=== PATIENT | male | born 1975 | race Caucasian/White ===

== ENCOUNTER 2017-04-12 21:25 | Inpatient (IN) | payer BC ==
[~2017-04-12] VITALS: Ht 182.9 cm; Wt 99.8 kg
[2017-04-12] MEDS ORDERED: ONDANSETRON PF 4 MG/2 ML VIAL. IV PRN (22:30)
[2017-04-12] MEDS ORDERED: HYDROcodone/APAP 5/325MG 1 TAB TABLET PO ONE (22:30)
--- NOTE | 2017-04-12 22:41 | PHYS DOC ---
Past Medical History Past Medical History: Anxiety Past Surgical History: No Surgical History Alcohol Use: Occasionally Drug Use: None Adult General Chief Complaint Chief Complaint: SKIN RASH/ABSCESS HPI HPI Patient is a 41 year old male presents to the emergency department stating that he has redness and pain to his left buttocks. Patient states he has been having this for the last week. He states that it's very tender and he is unable to sit on the buttocks side. He denies any drainage or discharge coming from the site. He does state that they did try to naseem it himself with no results. Patient is unsure when his last tetanus immunization occurred. He denies fever chills or nausea vomiting at this point in time Review of Systems Review of Systems Constitutional: Denies fever or chills [] Eyes: Denies change in visual acuity, redness, or eye pain [] HENT: Denies nasal congestion or sore throat [] Respiratory: Denies cough or shortness of breath [] Cardiovascular: No additional information not addressed in HPI [] GI: Denies abdominal pain, nausea, vomiting, bloody stools or diarrhea [] : Denies dysuria or hematuria [] Musculoskeletal: Denies back pain or joint pain [] Integument: Denies rash or skin lesions. Red painful area to the left buttock Neurologic: Denies headache, focal weakness or sensory changes [] Endocrine: Denies polyuria or polydipsia [] Current Medications Current Medications Current Medications Medications (Trade) Dose Ordered Sig/Doc Start Time Stop Time Status Last Admin Dose Admin Acetaminophen/ Hydrocodone Bitart (Lortab 5/325) 2 tab 1X ONCE 04/12/17 22:30 04/12/17 22:31 DC Clindamycin Phosphate 50 ml @ 100 mls/hr ONCE ONCE 04/12/17 22:45 04/12/17 23:14 Diphtheria/ Tetanus/Acell Pertussis (Boostrix) 0.5 ml ONCE ONCE 04/12/17 22:45 04/12/17 22:46 Morphine Sulfate 4 mg PRN Q2HR PRN 04/12/17 22:30 04/13/17 22:29 Ondansetron HCl (Zofran) 4 mg PRN Q8HRS PRN 04/12/17 22:30 04/13/17 22:29 Sodium Chloride 1,000 ml @ 125 mls/hr Q8H 04/12/17 22:30 04/13/17 22:29 Allergies Allergies Allergies Coded Allergies Type Severity Reaction Last Updated Verified No Known Drug Allergies 09/05/16 No Physical Exam Physical Exam Constitutional: Well developed, well nourished, no acute distress, non-toxic appearance. [] HENT: Normocephalic, atraumatic, bilateral external ears normal, oropharynx moist, no oral exudates, nose normal. [] Eyes: PERRLA, EOMI, conjunctiva normal, no discharge. [] Neck: Normal range of motion, no tenderness, supple, no stridor. [] Cardiovascular:Heart rate regular rhythm, no murmur [] Lungs & Thorax: Bilateral breath sounds clear to auscultation [] Skin: Warm, dry, no erythema, no rash. Left buttock with an area that is a football size with redness, warmth, tenderness. No drainage noted to the area. Back: No tenderness Extremities: No tenderness, no cyanosis, no clubbing, ROM intact, no edema. [] Neurologic: Alert and oriented X 3, normal motor function, normal sensory function, no focal deficits noted. [] Psychologic: Affect normal, judgement normal, mood normal. [] Current Patient Data Vital Signs Vital Signs Date Time Temp Pulse Resp B/P (MAP) Pulse Ox O2 Delivery O2 Flow Rate FiO2 04/12/17 21:30 99.4 114 16 145/91 (109) 99 Room Air 99.4 EKG EKG [] Radiology/Procedures Radiology/Procedures [] Course & Med Decision Making Course & Med Decision Making Pertinent Labs and Imaging studies reviewed. (See chart for details) Spoke with patient in regard to admission into the hospital for IV antibiotics. Patient agrees with admission. Spoke with Dr Burnett who recommends sed rate and ultrasound. Orders have been completed. [] Dragon Disclaimer Dragon Disclaimer This electronic medical record was generated, in whole or in part, using a voice recognition dictation system. Departure Departure Impression: Primary Impression: Cellulitis of left buttock Disposition: ADMITTED INPATIENT Admitting Physician: Sherri Kelly Condition: STABLE Referrals: VITALIY MARMOLEJO MD (PCP) Scripts No Active Prescriptions or Reported Meds SURYA WILKS OFFICE EXECUTIVE April 12, 2017 22:41
[2017-04-12 22:44] LABS: BASO # 0.1 x10^3/uL (0.0-0.2); BASO % 1 % (0-3); EOS % 1 % (0-3); HEMATOCRIT 42.4 % (39.0-53.0); HEMOGLOBIN 14.1 g/dL (13.0-17.5); LYMPH # 2.1 x10^3/uL (1.0-4.8); LYMPH % 11 % (24-48); MEAN CORPUSCULAR HEMOGLOBIN 30 pg (25-35); MEAN CORPUSCULAR HGB CONC 33 g/dL (31-37); MEAN CORPUSCULAR VOLUME 90 fL (79-100); MONO % 6 % (0-9); NEUT % 81 % (31-73); PLATELET COUNT 537 x10^3/uL (140-400); RED CELL DISTRIBUTION WIDTH 15.1 % (11.5-14.5); WHITE BLOOD COUNT 19.2 x10^3/uL (4.0-11.0)
[2017-04-12] MEDS ORDERED: DIPHTH,PERTUSS(ACELL),TET TOX 0.5 ML DISP.SYRIN. VAX IM ONE (22:45)
[2017-04-12] MEDS ORDERED: CLINDAMYCIN 600MG PREMIX 50 ML IV ONE (22:45)
[2017-04-12 22:55] LABS: CALCIUM 9.5 mg/dL (8.5-10.1); CREATININE 1.2 mg/dL (0.7-1.3); GFR 67.4; POTASSIUM 4.5 mmol/L (3.5-5.1)
[2017-04-12 23:00] LABS: ALBUMIN 2.8 g/dL (3.4-5.0); ALBUMIN/GLOBULIN RATIO 0.5 (1.0-1.7); TOTAL BILIRUBIN 0.4 mg/dL (0.2-1.0); TOTAL PROTEIN 7.9 g/dL (6.4-8.2)
[2017-04-12 23:06] LABS: % BASOS 1 % (0-3); % EOS 2 % (0-5); PLT ESTIMATE INCREASED (ADEQUATE); TOXIC GRANULATION SLIGHT
[2017-04-12] MEDS: MORPHINE SULFATE 4 MG/ML DISP.SYRIN. IV PRN (23:06)
--- NOTE | 2017-04-12 23:14 | RAD ---
INDICATION: Pain and redness left buttock COMPARISON: None. FINDINGS: Focused ultrasound images were obtained through the left buttock at the region of concern. Within the subcutaneous soft tissues there is a 48 x 47 x 22 mm complex appearing hypoechoic structure identified. There is some edema and skin thickening seen in the region as well IMPRESSION: Complex appearing hypoechoic region is seen within the subcutaneous soft tissues of left buttock. Could be from causes such as phlegmon/early abscess formation although other causes such as hematoma or soft tissue mass can also have this appearance. Follow-up could be obtained to ensure that this resolves. Electronically signed by: Vik Villegas MD (04/12/2017 11:11 PM)
[2017-04-12 23:54] VITALS: BP 133/89
[2017-04-13] VITALS (11 sets, daily range): BP systolic 97–141; BP diastolic 57–78
[2017-04-13] MEDS: IV NORMAL SALINE 1000ML BAG 1,000 ML IV SCH ×3 (00:16→14:30)
[2017-04-13] MEDS: CLINDAMYCIN 600MG PREMIX 50 ML IV SCH ×3 (05:36→21:52)
[2017-04-13 06:36] LABS: BASO % 0 % (0-3); EOS % 2 % (0-3); HEMATOCRIT 42.5 % (39.0-53.0); HEMOGLOBIN 14.2 g/dL (13.0-17.5); LYMPH % 12 % (24-48); MEAN CORPUSCULAR HEMOGLOBIN 30 pg (25-35); MEAN CORPUSCULAR HGB CONC 33 g/dL (31-37); MEAN CORPUSCULAR VOLUME 90 fL (79-100); MONO % 8 % (0-9); NEUT % 77 % (31-73); PLATELET COUNT 468 x10^3/uL (140-400); RED BLOOD COUNT 4.73 x10^6/uL (4.30-5.70); RED CELL DISTRIBUTION WIDTH 14.7 % (11.5-14.5); WHITE BLOOD COUNT 16.8 x10^3/uL (4.0-11.0)
[2017-04-13 06:51] LABS: CALCIUM 8.7 mg/dL (8.5-10.1); CREATININE 1.1 mg/dL (0.7-1.3); GFR 74.5; POTASSIUM 4.3 mmol/L (3.5-5.1)
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
[2017-04-13] MEDS: MORPHINE SULFATE 4 MG/ML DISP.SYRIN. IV PRN (08:36)
[2017-04-13] MEDS ORDERED: BUPIVAC MPF-EPI 0.5%-1:200000 30 ML VIAL. ONE (08:59)
[2017-04-13] MEDS ORDERED: ONDANSETRON PF 4 MG/2 ML VIAL. IV ONE (09:00)
[2017-04-13] MEDS ORDERED: IV RINGERS,LACTATED 1000ML 1,000 ML IV ONE (09:15)
[2017-04-13] MEDS ORDERED: fentaNYL PF VIAL 250 MCG/5 ML VIAL ONE (09:25)
[2017-04-13] MEDS ORDERED: LIDOCAINE 2% PF Vial for OR 5 ML VIAL. ONE (09:26)
[2017-04-13] MEDS ORDERED: PROPOFOL 20 ML IV ONE (09:26)
[2017-04-13] MEDS ORDERED: ONDANSETRON PF 4 MG/2 ML VIAL. ONE (09:58)
[2017-04-13] MEDS ORDERED: DEXAMETHASONE SOD PHOS 20 MG/5 ML VIAL. ONE (09:58)
[2017-04-13] MEDS ORDERED: SODIUM HYPOCHLORITE 0.25% 473 ML BOTTLE. TP ONE (10:00)
[2017-04-13] MEDS ORDERED: fentaNYL PF VIAL 100 MCG/2 ML VIAL ONE (10:24)
[2017-04-13] MEDS ORDERED: IV RINGERS,LACTATED 1000ML 1,000 ML IV SCH (10:32)
[2017-04-13] MEDS ORDERED: SEVOFLURANE 61 TO 120 MINUTES. IH ONE (10:37)
[2017-04-13] MEDS ORDERED: fentaNYL PF VIAL 100 MCG/2 ML VIAL IV PRN (10:45)
[2017-04-13] MEDS ORDERED: LIDOCAINE 1% 1 ML SYRINGE. ID PRN (10:45)
[2017-04-13] MEDS ORDERED: PROCHLORPERAZINE 10 MG/2 ML VIAL. IV PRN (10:45)
[2017-04-13] MEDS ORDERED: MORPHINE SULFATE 2 MG/ML DISP.SYRIN. IV PRN (10:45)
[2017-04-13] MEDS ORDERED: HYDROmorphone 2 MG/ML VIAL IV PRN (10:45)
[2017-04-13] MEDS ORDERED: ONDANSETRON PF 4 MG/2 ML VIAL. IV PRN (10:45)
[2017-04-13] MEDS: fentaNYL PF VIAL 100 MCG/2 ML VIAL IV PRN ×2 (10:53→11:05)
--- NOTE | 2017-04-13 11:33 | PDOC1 ---
History and Physical Date of Admission Date of Admission DATE: 04/13/17 TIME: 11:27 Identification/Chief Complaint Chief Complaint left buttock pain Problems: Source Source: Caregiver, Chart review, Patient History of Present Illness History of Present Illness 41 y.o male with no past medical, non DM, 1 week hx left buttock pain and redness, tried to naseem it/some manipulation, came to ER last night bec of persistence, WBC 19, no documented fevers. MID level provider advised admission, I asked her to do ESR, US overnight to r./o abscess given the description of induration and hardness, and true enough, abscess/drainable collection was identified, ESR elevated at 92. Started on clinda IV. No temp overnight, WBC slightly down to 16 from 19. Now having I and D by Past Medical History Cardiovascular: No pertinent hx GI: No pertinent hx Heme/Onc: No pertinent hx Hepatobiliary: No pertinent hx Psych: Anxiety Musculoskeletal: No pain Rheumatologic: No pertinent hx Infectious disease: No pertinent hx Renal/: No pertinent hx Endocrine: No pertinent hx Past Surgical History Past Surgical History: No pertinent history Family History Family History: No Significant (reviewed none) Social History Smoke: No ALCOHOL: none Drugs: None Current Medications Current Medications Current Medications Acetaminophen/ Hydrocodone Bitart (Lortab 5/325) 2 tab 1X ONCE PO Last administered on 04/12/17 23:04; Start 04/12/17 at 22:30; Stop 04/12/17 at 22:31 ; Status DC Clindamycin Phosphate 50 ml @ 100 mls/hr Q8HRS IV Last administered on 05:36; Start 04/13/17 at 06:00 Ondansetron HCl (Zofran) 4 mg PRN Q8HRS PRN IV NAUSEA/VOMITING Last administered on 04/12/17 23:06; Start 04/12/17 at 22:30; Stop 04/13/17 at 22:29 Morphine Sulfate 4 mg PRN Q2HR PRN IV PAIN Last administered on 04/13/17 08:36 ; Start 04/12/17 at 22:30; Stop 04/13/17 at 22:29 Sodium Chloride 1,000 ml @ 125 mls/hr Q8H IV Last administered on 04/13/17 05: 47; Start 04/12/17 at 22:30; Stop 04/13/17 at 22:29 Diphtheria/ Tetanus/Acell Pertussis (Boostrix) 0.5 ml ONCE ONCE VAX IM Last administered on 04/12/17 23:05; Start 04/12/17 at 22:45; Stop 04/12/17 at 22:46 ; Status DC Clindamycin Phosphate 50 ml @ 100 mls/hr ONCE ONCE IV Last administered on 23:05; Start 04/12/17 at 22:45; Stop 04/12/17 at 23:14; Status DC Bupivacaine HCl/ Epinephrine Bitart (Sensorcain-Mpf Epi 0.5%-1:[id number]) 30 ml STK -MED ONCE .ROUTE ; Start 04/13/17 at 08:59; Stop 04/13/17 at 09:00; Status DC Ondansetron HCl (Zofran) 4 mg 1X ONCE IV ; Start 04/13/17 at 09:00; Stop at 09:03; Status DC Ringer's Solution 1,000 ml @ 75 mls/hr 1X ONCE IV Last administered on 09:00; Start 04/13/17 at 09:15; Stop 04/13/17 at 22:34 Fentanyl Citrate (Fentanyl 5ml Vial) 250 mcg STK-MED ONCE .ROUTE ; Start at 09:25; Stop 04/13/17 at 09:26; Status DC Propofol 20 ml @ As Directed STK-MED ONCE IV ; Start 04/13/17 at 09:26; Stop 04/13 at 09:27; Status DC Lidocaine HCl (Lidocaine Pf 2% Vial) 5 ml STK-MED ONCE .ROUTE ; Start 04/13/17 at 09:26; Stop 04/13/17 at 09:27; Status DC Ondansetron HCl (Zofran) 4 mg STK-MED ONCE .ROUTE ; Start 04/13/17 at 09:58; Stop 04/13/17 at 09:59; Status DC Dexamethasone Sodium Phosphate (Decadron) 20 mg STK-MED ONCE .ROUTE ; Start 04/13 at 09:58; Stop 04/13/17 at 09:59; Status DC Sodium Hypochlorite (Dakin'S 1/2 Strength) 1 diana 1X ONCE TP Last administered on 04/13/17t 10:08; Start 04/13/17 at 10:00; Stop 04/13/17 at 10:01; Status DC Fentanyl Citrate (Fentanyl 2ml Vial) 100 mcg STK-MED ONCE .ROUTE ; Start at 10:24; Stop 04/13/17 at 10:25; Status DC Ondansetron HCl (Zofran) 4 mg PRN Q6HRS PRN IV NAUSEA/VOMITING; Start 04/13/17 at 10:45; Stop 04/14/17 at 10:44 Fentanyl Citrate (Fentanyl 2ml Vial) 25 mcg PRN Q5MIN PRN IV MILD PAIN; Start 04/13/17 at 10:45; Stop 04/14/17 at 10:44 Fentanyl Citrate (Fentanyl 2ml Vial) 50 mcg PRN Q5MIN PRN IV MODERATE PAIN Last administered on 04/13/17t 11:05; Start 04/13/17 at 10:45; Stop 04/14/17 at 10: 44 Morphine Sulfate 1 mg PRN Q10MIN PRN IV SEVERE PAIN; Start 04/13/17 at 10:45; Stop 04/14/17 at 10:44 Ringer's Solution 1,000 ml @ 0 mls/hr Q0M IV ; Start 04/13/17 at 10:32; Stop 04/13/17 at 22:31 Lidocaine HCl 2 ml PRN 1X PRN ID PRIOR TO IV START; Start 04/13/17 at 10:45; Stop 04/14/17 at 10:44 Hydromorphone HCl (Dilaudid) 0.5 mg PRN Q10MIN PRN IV SEV PAIN, Second choice; Start 04/13/17 at 10:45; Stop 04/14/17 at 10:44 Prochlorperazine Edisylate (Compazine) 5 mg PACU PRN PRN IV NAUSEA, MRX1; Start 04/13/17 at 10:45; Stop 04/14/17 at 10:44 Sevoflurane (Ultane) 60 ml STK-MED ONCE IH ; Start 04/13/17 at 10:37; Stop at 10:38; Status DC Active Scripts Active No Active Prescriptions or Reported Medications Allergies Allergies: Coded Allergies: No Known Drug Allergies (Unverified , 09/05/16) ROS General: No: Chills, Night Sweats, Fatigue, Malaise, Appetite, Other PSYCHOLOGICAL ROS: No: Anxiety, Behavioral Disorder, Concentration difficultie , Decreased libido, Depression, Disorientation, Hallucinations, Hostility, Irritablity, Memory difficulties, Mood Swings, Obsessive thoughts, Physical abuse, Sexual abuse, Sleep disturbances, Suicidal ideation, Other Eyes: No Blurry vision, No Decreased vision, No Double vision, No Dry eyes, No Excessive tearing, No Eye Pain, No Itchy Eyes, No Loss of vision, No Photophobia , No Scotomata, No Uses contacts, No Uses glasses, No Other HEENT: No: Heacaches, Visual Changes, Hearing change, Nasal congestion, Nasal discharge, Oral lesions, Sinus pain, Sore Throat, Epistaxis, Sneezing, Snoring, Tinnitus, Vertigo, Vocal changes, Other ALLERGY AND IMMUNOLOGY: No: Hives, Insect Bite Sensitivity, Itchy/Watery Eyes, Nasal Congestion, Post Nasal Drip, Seasonal Allergies, Other Hematological and Lymphatic: No: Bleeding Problems, Blood Clots, Blood Transfusions, Brusing, Night Sweats, Pallor, Swollen Lymph Nodes, Other ENDOCRINE: No: Breast Changes, Galactorrhea, Hair Pattern Changes, Hot Flashes , Malaise/lethargy, Mood Swings, Palpitations, Polydipsia/polyuria, Skin Changes , Temperature Intolerance, Unexpected Weight Changes, Other Breast: No New/Changing Breast Lumps, No Nipple changes, No Nipple discharge, No Other Respiratory: No: Cough, Hemoptysis, Orthopnea, Pleuritic Pain, Shortness of breath, SOB with excertion, Sputum Changes, Stridor, Tachypnea, Wheezing, Other Cardiovascular: No Chest Pain, No Palpitations, No Orthopnea, No Paroxysmal Noc. Dyspnea, No Edema, No Lt Headedness, No Other Gastrointestinal: No Nausea, No Vomiting, No Abdominal Pain, No Diarrhea, No Constipation, No Melena, No Hematochezia, No Other Genitourinary: No Dysuria, No Frequency, No Incontinence, No Hematuria, No Retention, No Discharge, No Urgency, No Pain, No Flank Pain, No Other, No , No , No , No , No , No , No Musculoskeletal: No Gait Disturbance, No Joint Pain, No Joint Stiffness, No Joint Swelling, No Muscle Pain, No Muscular Weakness, No Pain In:, No Swelling In:, No Other Neurological: No Behavorial Changes, No Bowel/Bladder ControlChng, No Confusion , No Dizziness, No Gait Disturbance, No Headaches, No Impaired Coord/balance, No Memory Loss, No Numbness/Tingling, No Seizures, No Speech Problems, No Tremors, No Visual Changes, No Weakness, No Other Skin: No Dry Skin, No Eczema, No Hair Changes, No Lumps, No Mole Changes, No Mottling, No Nail Changes, No Pruritus, No Rash, No Skin Lesion Changes, No Other, No Acne Physical Exam General: Alert, Oriented X3, Cooperative, No acute distress HEENT: PERRLA Lungs: Clear to auscultation, Normal air movement Heart: S1S2, RRR, no thrills, no rubs, no gallops, no murmurs Cardiovascular: S1, S2 Breasts: Normal, Rt breast nml w/o mass, Lt breast nml w/o mass, Nipples normal Abdomen: Normal bowel sounds, Soft, No tenderness, No hepatosplenomegaly, No masses Male Genitals Exam: other (left buttock redness, swelling induration palpable, marked on the area of fluid collection, tender to touch) Rectal Exam: not examined Extremities: No clubbing, No cyanosis, No edema, Normal pulses, No tenderness/ swelling Skin: No rashes, No breakdown, No significant lesion, Other (see above) Neuro: Normal gait, Normal speech, Strength at 5/5 X4 ext, Normal tone, Sensation intact, Cranial nerves 3-12 NL, Reflexes 2+ Psych/Mental Status: Mental status NL, Mood NL Vitals Vitals Vital Signs Date Time Temp Pulse Resp B/P (MAP) Pulse Ox O2 Delivery O2 Flow Rate FiO2 04/13/17 11:15 84 18 140/80 94 Nasal Cannula 2 04/13/17 10:30 99.0 99.0 Labs Labs Laboratory Tests Test 04/12/17 22:22 04/12/17 22:32 04/13/17 06:05 Erythrocyte Sedimentation Rate 92 (0-15) White Blood Count 19.2 x10^3/uL (4.0-11.0) 16.8 x10^3/uL (4.0-11.0) Red Blood Count 4.70 x10^6/uL (4.30-5.70) 4.73 x10^6/uL (4.30-5.70) Hemoglobin 14.1 g/dL (13.0-17.5) 14.2 g/dL (13.0-17.5) Hematocrit 42.4 % (39.0-53.0) 42.5 % (39.0-53.0) Mean Corpuscular Volume 90 fL (79-100) 90 fL (79-100) Mean Corpuscular Hemoglobin 30 pg (25-35) 30 pg (25-35) Mean Corpuscular Hemoglobin Concent 33 g/dL (31-37) 33 g/dL (31-37) Red Cell Distribution Width 15.1 % (11.5-14.5) 14.7 % (11.5-14.5) Platelet Count 537 x10^3/uL (140-400) 468 x10^3/uL (140-400) Neutrophils (%) (Auto) 81 % (31-73) 77 % (31-73) Lymphocytes (%) (Auto) 11 % (24-48) 12 % (24-48) Monocytes (%) (Auto) 6 % (0-9) 8 % (0-9) Eosinophils (%) (Auto) 1 % (0-3) 2 % (0-3) Basophils (%) (Auto) 1 % (0-3) 0 % (0-3) Neutrophils # (Auto) 15.5 x10^3uL (1.8-7.7) 13.0 x10^3uL (1.8-7.7) Lymphocytes # (Auto) 2.1 x10^3/uL (1.0-4.8) 2.0 x10^3/uL (1.0-4.8) Monocytes # (Auto) 1.2 x10^3/uL (0.0-1.1) 1.4 x10^3/uL (0.0-1.1) Eosinophils # (Auto) 0.3 x10^3/uL (0.0-0.7) 0.3 x10^3/uL (0.0-0.7) Basophils # (Auto) 0.1 x10^3/uL (0.0-0.2) 0.0 x10^3/uL (0.0-0.2) Segmented Neutrophils % 76 % (35-66) Band Neutrophils % 4 % (0-9) Lymphocytes % 13 % (24-48) Monocytes % 4 % (0-10) Eosinophils % 2 % (0-5) Basophils % 1 % (0-3) Toxic Granulation Slight Platelet Estimate Increased (ADEQUATE) Sodium Level 137 mmol/L (136-145) 140 mmol/L (136-145) Potassium Level 4.5 mmol/L (3.5-5.1) 4.3 mmol/L (3.5-5.1) Chloride Level 99 mmol/L (98-107) 104 mmol/L (98-107) Carbon Dioxide Level 33 mmol/L (21-32) 31 mmol/L (21-32) Anion Gap 5 (6-14) 5 (6-14) Blood Urea Nitrogen 15 mg/dL (8-26) 15 mg/dL (8-26) Creatinine 1.2 mg/dL (0.7-1.3) 1.1 mg/dL (0.7-1.3) Estimated GFR (Cockcroft-Gault) 67.4 74.5 BUN/Creatinine Ratio 13 (6-20) Glucose Level 94 mg/dL (70-99) 92 mg/dL (70-99) Calcium Level 9.5 mg/dL (8.5-10.1) 8.7 mg/dL (8.5-10.1) Total Bilirubin 0.4 mg/dL (0.2-1.0) Aspartate Amino Transf (AST/SGOT) 49 U/L (15-37) Alanine Aminotransferase (ALT/SGPT) 79 U/L (16-63) Alkaline Phosphatase 73 U/L (46-116) Total Protein 7.9 g/dL (6.4-8.2) Albumin 2.8 g/dL (3.4-5.0) Albumin/Globulin Ratio 0.5 (1.0-1.7) Laboratory Tests Test 04/12/17 22:22 04/12/17 22:32 04/13/17 06:05 Erythrocyte Sedimentation Rate 92 (0-15) White Blood Count 19.2 x10^3/uL (4.0-11.0) 16.8 x10^3/uL (4.0-11.0) Red Blood Count 4.70 x10^6/uL (4.30-5.70) 4.73 x10^6/uL (4.30-5.70) Hemoglobin 14.1 g/dL (13.0-17.5) 14.2 g/dL (13.0-17.5) Hematocrit 42.4 % (39.0-53.0) 42.5 % (39.0-53.0) Mean Corpuscular Volume 90 fL (79-100) 90 fL (79-100) Mean Corpuscular Hemoglobin 30 pg (25-35) 30 pg (25-35) Mean Corpuscular Hemoglobin Concent 33 g/dL (31-37) 33 g/dL (31-37) Red Cell Distribution Width 15.1 % (11.5-14.5) 14.7 % (11.5-14.5) Platelet Count 537 x10^3/uL (140-400) 468 x10^3/uL (140-400) Neutrophils (%) (Auto) 81 % (31-73) 77 % (31-73) Lymphocytes (%) (Auto) 11 % (24-48) 12 % (24-48) Monocytes (%) (Auto) 6 % (0-9) 8 % (0-9) Eosinophils (%) (Auto) 1 % (0-3) 2 % (0-3) Basophils (%) (Auto) 1 % (0-3) 0 % (0-3) Neutrophils # (Auto) 15.5 x10^3uL (1.8-7.7) 13.0 x10^3uL (1.8-7.7) Lymphocytes # (Auto) 2.1 x10^3/uL (1.0-4.8) 2.0 x10^3/uL (1.0-4.8) Monocytes # (Auto) 1.2 x10^3/uL (0.0-1.1) 1.4 x10^3/uL (0.0-1.1) Eosinophils # (Auto) 0.3 x10^3/uL (0.0-0.7) 0.3 x10^3/uL (0.0-0.7) Basophils # (Auto) 0.1 x10^3/uL (0.0-0.2) 0.0 x10^3/uL (0.0-0.2) Segmented Neutrophils % 76 % (35-66) Band Neutrophils % 4 % (0-9) Lymphocytes % 13 % (24-48) Monocytes % 4 % (0-10) Eosinophils % 2 % (0-5) Basophils % 1 % (0-3) Toxic Granulation Slight Platelet Estimate Increased (ADEQUATE) Sodium Level 137 mmol/L (136-145) 140 mmol/L (136-145) Potassium Level 4.5 mmol/L (3.5-5.1) 4.3 mmol/L (3.5-5.1) Chloride Level 99 mmol/L (98-107) 104 mmol/L (98-107) Carbon Dioxide Level 33 mmol/L (21-32) 31 mmol/L (21-32) Anion Gap 5 (6-14) 5 (6-14) Blood Urea Nitrogen 15 mg/dL (8-26) 15 mg/dL (8-26) Creatinine 1.2 mg/dL (0.7-1.3) 1.1 mg/dL (0.7-1.3) Estimated GFR (Cockcroft-Gault) 67.4 74.5 BUN/Creatinine Ratio 13 (6-20) Glucose Level 94 mg/dL (70-99) 92 mg/dL (70-99) Calcium Level 9.5 mg/dL (8.5-10.1) 8.7 mg/dL (8.5-10.1) Total Bilirubin 0.4 mg/dL (0.2-1.0) Aspartate Amino Transf (AST/SGOT) 49 U/L (15-37) Alanine Aminotransferase (ALT/SGPT) 79 U/L (16-63) Alkaline Phosphatase 73 U/L (46-116) Total Protein 7.9 g/dL (6.4-8.2) Albumin 2.8 g/dL (3.4-5.0) Albumin/Globulin Ratio 0.5 (1.0-1.7) VTE Prophylaxis Ordered VTE Prophylaxis Devices: Yes VTE Pharmacological Prophylaxi: Yes Assessment/Plan Assessment/Plan 1. Left buttock cellulitis./abscess 2. SIRS POA, infectious, no oragn dysfunction 3. Leukocytosis, recative thrombocytosis sec to above infection Plan; Admit 2 MN IV CLinda I and D by GS Send specimen to lab CBC again antionette (monitor WBC and platelets) WOund care Quintin RN and LEONIE DE LA PAZ MD Apr 13, 2017 11:33
[2017-04-13] MEDS ORDERED: oxyCODONE/APAP 5/325 1 TAB TABLET PO PRN (11:45)
[2017-04-13] MEDS ORDERED: IBUPROFEN 600 MG TABLET. PO PRN (11:45)
--- NOTE | 2017-04-13 11:51 | PDOC ---
BRIEF OPERATIVE NOTE Pre-Op Diagnosis left gluteal abscess/cellulitis Post-Op Diagnosis extensive left intramuscular gluteal abscess and cellulitis Procedure Performed I and D of complex intramuscular left gluteal abscess Surgeon francia llye Anesthesia Type: General Blood Loss 200 IV Fluid 1100 Findings culture obtained Complications 0 Additional Remarks rené well to rr stable. NO LYLE MD Apr 13, 2017 11:51
[2017-04-13] MEDS: HYDROcodone/APAP 5/325MG 1 TAB TABLET PO PRN ×3 (12:59→23:08)
--- NOTE | 2017-04-13 15:40 | OP ---
DATE OF SURGERY: 04/13/2017 PREOPERATIVE DIAGNOSIS: Left gluteal abscess. POSTOPERATIVE DIAGNOSIS: Extensive complex left intramuscular gluteal abscess. SURGEON: No Lyle M.D. ANESTHESIA: General. ESTIMATED BLOOD LOSS: 200 mL. IV FLUIDS: 1100 mL. PROCEDURES PERFORMED: Incision and drainage of complex intramuscular left gluteal abscess. INDICATIONS: The patient is a 41-year-old male who presents with pain and swelling of his left gluteal region. On exam, he has extensive erythema, tenderness, and fluctuance consistent with abscess. Ultrasound confirmed abscess. FINDINGS: His abscess was quite extensive and had extended into the gluteal musculature. DESCRIPTION OF PROCEDURE: After informed consent was obtained, the patient was taken to the operating room and placed in supine position. After adequate induction of general anesthesia, he was placed on his right side with his left side up. He was prepped and draped in usual sterile fashion. A small incision was made over the fluctuant area and the subcutaneous tissue divided with cautery. What returned was large amount of thick rosario gross pus. This cavity was palpated with gloved finger as well as suction and was quite extensive and extended medially. The incision was then lengthened along the length of the abscess cavity and it was opened with cautery. The patient had extension of the abscess into the gluteal muscles. After adequately exploring the cavity and breaking up all loculations, the wound was made partially hemostatic with cautery. It was then treated with a Pulsavac. The tissues at this point appeared healthy, cultures had been taken. The wound was packed and pressure was held at this point. After removing the packs, hemostasis was nearly complete. There was an area of the muscle fiber that was just diffusely bleeding with unidentifiable or single controllable source. This was treated with FloSeal and laid in the bed of the wound for several minutes, at which point the wound was completely hemostatic. It was entirely irrigated with saline. The wound remained hemostatic. The FloSeal had been evacuated from the wound. The wound was then packed with single long piece of Kerlix slightly moistened in Dakin's. He tolerated the procedure well. There were no apparent complications. During the surgery, the wound had been thoroughly explored and there were no other identifiable undrained pockets or loculations. NO LYLE MD DR: SILVANA/aung JOB#: [id number] / [id number] LEONIE Chavez MD, RICHARD MD
[2017-04-13] MEDS ORDERED: SODIUM HYPOCHLORITE 0.125% 473 ML BOTTLE. TP PRN (20:45)
[2017-04-14 03:00] VITALS: BP 136/86
[2017-04-14 04:45] LABS: BASO # 0.1 x10^3/uL (0.0-0.2); BASO % 0 % (0-3); EOS % 0 % (0-3); HEMATOCRIT 38.9 % (39.0-53.0); LYMPH # 1.5 x10^3/uL (1.0-4.8); LYMPH % 9 % (24-48); MEAN CORPUSCULAR HEMOGLOBIN 30 pg (25-35); MEAN CORPUSCULAR HGB CONC 33 g/dL (31-37); MEAN CORPUSCULAR VOLUME 91 fL (79-100); MONO % 5 % (0-9); NEUT % 86 % (31-73); PLATELET COUNT 515 x10^3/uL (140-400); RED BLOOD COUNT 4.29 x10^6/uL (4.30-5.70); RED CELL DISTRIBUTION WIDTH 15.3 % (11.5-14.5); WHITE BLOOD COUNT 16.4 x10^3/uL (4.0-11.0)
[2017-04-14] MEDS: CLINDAMYCIN 600MG PREMIX 50 ML IV SCH ×3 (05:36→21:57)
[2017-04-14] MEDS: HYDROcodone/APAP 5/325MG 1 TAB TABLET PO PRN (05:38)
[2017-04-14 07:00] VITALS: BP 142/86
--- NOTE | 2017-04-14 09:16 | PDOC ---
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 04/14/17 0916: SURGICAL PROGRESS NOTE Subjective pain at wound d/w nursing significant bleeding to wound he is upset, was hoping to leave today Vital Signs Vital Signs Date Time Temp Pulse Resp B/P (MAP) Pulse Ox O2 Delivery O2 Flow Rate FiO2 04/14/17 07:00 97.5 67 20 142/86 (104) 97 Room Air 97.5 04/13/17 12:45 2.0 I&O Intake and Output 04/14/17 07:00 Intake Total 770 ml Output Total 300 ml Balance 470 ml Intake Oral 770 ml Output Urine Total 300 ml # Voids 3 General: Alert, Oriented X3, Cooperative, No acute distress Skin: Other (left buttock wound, significant bleeding with removal of loose gauze, clots noted in wound bed) Labs Laboratory Tests Test 04/12/17 22:22 04/12/17 22:32 04/13/17 06:05 04/14/17 04:22 Erythrocyte Sedimentation Rate 92 (0-15) White Blood Count 19.2 x10^3/uL (4.0-11.0) 16.8 x10^3/uL (4.0-11.0) 16.4 x10^3/uL (4.0-11.0) Red Blood Count 4.70 x10^6/uL (4.30-5.70) 4.73 x10^6/uL (4.30-5.70) 4.29 x10^6/uL (4.30-5.70) Hemoglobin 14.1 g/dL (13.0-17.5) 14.2 g/dL (13.0-17.5) 13.0 g/dL (13.0-17.5) Hematocrit 42.4 % (39.0-53.0) 42.5 % (39.0-53.0) 38.9 % (39.0-53.0) Mean Corpuscular Volume 90 fL (79-100) 90 fL (79-100) 91 fL (79-100) Mean Corpuscular Hemoglobin 30 pg (25-35) 30 pg (25-35) 30 pg (25-35) Mean Corpuscular Hemoglobin Concent 33 g/dL (31-37) 33 g/dL (31-37) 33 g/dL (31-37) Red Cell Distribution Width 15.1 % (11.5-14.5) 14.7 % (11.5-14.5) 15.3 % (11.5-14.5) Platelet Count 537 x10^3/uL (140-400) 468 x10^3/uL (140-400) 515 x10^3/uL (140-400) Neutrophils (%) (Auto) 81 % (31-73) 77 % (31-73) 86 % (31-73) Lymphocytes (%) (Auto) 11 % (24-48) 12 % (24-48) 9 % (24-48) Monocytes (%) (Auto) 6 % (0-9) 8 % (0-9) 5 % (0-9) Eosinophils (%) (Auto) 1 % (0-3) 2 % (0-3) 0 % (0-3) Basophils (%) (Auto) 1 % (0-3) 0 % (0-3) 0 % (0-3) Neutrophils # (Auto) 15.5 x10^3uL (1.8-7.7) 13.0 x10^3uL (1.8-7.7) 14.0 x10^3uL (1.8-7.7) Lymphocytes # (Auto) 2.1 x10^3/uL (1.0-4.8) 2.0 x10^3/uL (1.0-4.8) 1.5 x10^3/uL (1.0-4.8) Monocytes # (Auto) 1.2 x10^3/uL (0.0-1.1) 1.4 x10^3/uL (0.0-1.1) 0.7 x10^3/uL (0.0-1.1) Eosinophils # (Auto) 0.3 x10^3/uL (0.0-0.7) 0.3 x10^3/uL (0.0-0.7) 0.0 x10^3/uL (0.0-0.7) Basophils # (Auto) 0.1 x10^3/uL (0.0-0.2) 0.0 x10^3/uL (0.0-0.2) 0.1 x10^3/uL (0.0-0.2) Segmented Neutrophils % 76 % (35-66) Band Neutrophils % 4 % (0-9) Lymphocytes % 13 % (24-48) Monocytes % 4 % (0-10) Eosinophils % 2 % (0-5) Basophils % 1 % (0-3) Toxic Granulation Slight Platelet Estimate Increased (ADEQUATE) Sodium Level 137 mmol/L (136-145) 140 mmol/L (136-145) Potassium Level 4.5 mmol/L (3.5-5.1) 4.3 mmol/L (3.5-5.1) Chloride Level 99 mmol/L (98-107) 104 mmol/L (98-107) Carbon Dioxide Level 33 mmol/L (21-32) 31 mmol/L (21-32) Anion Gap 5 (6-14) 5 (6-14) Blood Urea Nitrogen 15 mg/dL (8-26) 15 mg/dL (8-26) Creatinine 1.2 mg/dL (0.7-1.3) 1.1 mg/dL (0.7-1.3) Estimated GFR (Cockcroft-Gault) 67.4 74.5 BUN/Creatinine Ratio 13 (6-20) Glucose Level 94 mg/dL (70-99) 92 mg/dL (70-99) Calcium Level 9.5 mg/dL (8.5-10.1) 8.7 mg/dL (8.5-10.1) Total Bilirubin 0.4 mg/dL (0.2-1.0) Aspartate Amino Transf (AST/SGOT) 49 U/L (15-37) Alanine Aminotransferase (ALT/SGPT) 79 U/L (16-63) Alkaline Phosphatase 73 U/L (46-116) Total Protein 7.9 g/dL (6.4-8.2) Albumin 2.8 g/dL (3.4-5.0) Albumin/Globulin Ratio 0.5 (1.0-1.7) Laboratory Tests Test 04/14/17 04:22 White Blood Count 16.4 x10^3/uL (4.0-11.0) Red Blood Count 4.29 x10^6/uL (4.30-5.70) Hemoglobin 13.0 g/dL (13.0-17.5) Hematocrit 38.9 % (39.0-53.0) Mean Corpuscular Volume 91 fL (79-100) Mean Corpuscular Hemoglobin 30 pg (25-35) Mean Corpuscular Hemoglobin Concent 33 g/dL (31-37) Red Cell Distribution Width 15.3 % (11.5-14.5) Platelet Count 515 x10^3/uL (140-400) Neutrophils (%) (Auto) 86 % (31-73) Lymphocytes (%) (Auto) 9 % (24-48) Monocytes (%) (Auto) 5 % (0-9) Eosinophils (%) (Auto) 0 % (0-3) Basophils (%) (Auto) 0 % (0-3) Neutrophils # (Auto) 14.0 x10^3uL (1.8-7.7) Lymphocytes # (Auto) 1.5 x10^3/uL (1.0-4.8) Monocytes # (Auto) 0.7 x10^3/uL (0.0-1.1) Eosinophils # (Auto) 0.0 x10^3/uL (0.0-0.7) Basophils # (Auto) 0.1 x10^3/uL (0.0-0.2) Problem List s/p I&D abscess significant bleeding to wound with removal of loose gauze, fear that if I remove deep, tightly packed gauze bleeding will be more profuse--I discussed with Dr Lyle, will leave packing in place until she rounds, reinforced and a light pressure dressing applied to area Problems: NO LYLE MD 04/14/17 0375: SURGICAL PROGRESS NOTE Assessment/Plan addendum i saw and examined him. his wound started bleeding today and the bleeding has worsened throughout the day. the pain in his buttock is much improved. no fever/chills afeb vss alert, no distress buttock wound: i removed the packing at the beside. sig continuous bleeding. pressure held and then floseal x 2 applied. some of the bleeding stopped which allowed visualization of 3 areas that cont to bleed. one of the 3 was pulsatile. all three are in the subq fat which is not the area that was bleeding yest intraoperatively. area is tender enough to limit the firmness of the pressure that can be applied a/p bleeding, uncontrolled by bedside manuevers from his I and D incision. emergently pt is being returned to the OR for wound exploration and control of bleeding. i expect to be able to apply a wound vac today intraop which will help maintain hemostasis. he is not npo. increased risk of aspiration d/w him but his bleeding is brisk enough that waiting 6 hrs is not reasonable. d/w dr. sanders. d/w pt the risk of additional bleeding. questions answered and he desires to proceed. Problems: KATHY CUI APRN Apr 14, 2017 09:16 NO LYLE MD Apr 14, 2017 14:04
[2017-04-14] MEDS ORDERED: POLYETHYLENE GLYCOL 3350 17 GM PACKET. PO PRN (10:00)
[2017-04-14 11:00] VITALS: BP 131/75
[2017-04-14] MEDS ORDERED: MORPHINE SULFATE 4 MG/ML DISP.SYRIN. IV ONE (12:45)
[2017-04-14] MEDS ORDERED: PROCHLORPERAZINE 10 MG/2 ML VIAL. IV PRN (13:00)
[2017-04-14] MEDS ORDERED: fentaNYL PF VIAL 100 MCG/2 ML VIAL IV PRN ×2 (13:00)
[2017-04-14] MEDS ORDERED: LIDOCAINE 1% 1 ML SYRINGE. ID PRN (13:00)
[2017-04-14] MEDS ORDERED: HYDROmorphone 2 MG/ML VIAL IV PRN (13:00)
[2017-04-14] MEDS ORDERED: IV RINGERS,LACTATED 1000ML 1,000 ML IV SCH (13:00)
[2017-04-14] MEDS ORDERED: MORPHINE SULFATE 2 MG/ML DISP.SYRIN. IV PRN (13:00)
[2017-04-14] MEDS ORDERED: ONDANSETRON PF 4 MG/2 ML VIAL. IV PRN (13:00)
[2017-04-14] MEDS: MORPHINE SULFATE 4 MG/ML DISP.SYRIN. IV PRN (13:11)
[2017-04-14] MEDS ORDERED: LIDOCAINE 2% PF Vial for OR 5 ML VIAL. ONE (13:21)
[2017-04-14] MEDS ORDERED: PROPOFOL 20 ML IV ONE (13:21)
[2017-04-14] MEDS ORDERED: FAMOTIDINE 20 MG/2 ML VIAL ONE (13:21)
[2017-04-14] MEDS ORDERED: ONDANSETRON PF 4 MG/2 ML VIAL. ONE (13:22)
[2017-04-14] MEDS ORDERED: DEXAMETHASONE SOD PHOS 20 MG/5 ML VIAL. ONE (13:22)
[2017-04-14] MEDS ORDERED: SUCCINYLCHOLINE 200 MG/10 ML VIAL. ONE (13:22)
[2017-04-14 13:30] LABS: HEMATOCRIT 38.4 % (39.0-53.0); HEMOGLOBIN 12.9 g/dL (13.0-17.5); RED BLOOD COUNT 4.25 x10^6/uL (4.30-5.70); WHITE BLOOD COUNT 18.5 x10^3/uL (4.0-11.0)
[2017-04-14] MEDS ORDERED: SEVOFLURANE 31 TO 60 MINUTES. IH ONE ×2 (13:31→14:38)
[2017-04-14] MEDS ORDERED: fentaNYL PF VIAL 100 MCG/2 ML VIAL ONE (13:56)
--- NOTE | 2017-04-14 15:10 | PDOC ---
BRIEF OPERATIVE NOTE Pre-Op Diagnosis bleeding from incision wound exploration/control of bleeding with suture ligation and cautery francia maloney ebl 25 ivf 300 rené well to rr stable #[id number] wound vac applied with wound team in the OR. a single black sponge used in the wound. pt to f/u with wound clinic for outpt vac management. NO LYLE MD Apr 14, 2017 15:10
--- NOTE | 2017-04-14 17:41 | PDOC ---
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 Quintin RN and Vitals Vitals Vital Signs Date Time Temp Pulse Resp B/P (MAP) Pulse Ox O2 Delivery O2 Flow Rate FiO2 04/14/17 15:33 97.0 96 20 138/80 99 Nasal Cannula 2 97.0 Physical Exam General: Alert, Oriented X3, Cooperative, No acute distress Heart: Regular rate, Normal S1, Normal S2, No murmurs Abdomen: Normal bowel sounds, Soft, No tenderness, No hepatosplenomegaly, No masses Extremities: No clubbing, No cyanosis, No edema, Normal pulses, No tenderness/ swelling Skin: Other (left buttock wound, significant bleeding with removal of loose gauze, clots noted in wound bed) Labs LABS Laboratory Tests Test 04/14/17 04:22 04/14/17 13:15 White Blood Count 16.4 x10^3/uL (4.0-11.0) 18.5 x10^3/uL (4.0-11.0) Red Blood Count 4.29 x10^6/uL (4.30-5.70) 4.25 x10^6/uL (4.30-5.70) Hemoglobin 13.0 g/dL (13.0-17.5) 12.9 g/dL (13.0-17.5) Hematocrit 38.9 % (39.0-53.0) 38.4 % (39.0-53.0) Mean Corpuscular Volume 91 fL (79-100) 90 fL (79-100) Mean Corpuscular Hemoglobin 30 pg (25-35) 30 pg (25-35) Mean Corpuscular Hemoglobin Concent 33 g/dL (31-37) 34 g/dL (31-37) Red Cell Distribution Width 15.3 % (11.5-14.5) 15.0 % (11.5-14.5) Platelet Count 515 x10^3/uL (140-400) 559 x10^3/uL (140-400) Neutrophils (%) (Auto) 86 % (31-73) Lymphocytes (%) (Auto) 9 % (24-48) Monocytes (%) (Auto) 5 % (0-9) Eosinophils (%) (Auto) 0 % (0-3) Basophils (%) (Auto) 0 % (0-3) Neutrophils # (Auto) 14.0 x10^3uL (1.8-7.7) Lymphocytes # (Auto) 1.5 x10^3/uL (1.0-4.8) Monocytes # (Auto) 0.7 x10^3/uL (0.0-1.1) Eosinophils # (Auto) 0.0 x10^3/uL (0.0-0.7) Basophils # (Auto) 0.1 x10^3/uL (0.0-0.2) Review of Systems Review of Systems co pain co weakness Assessment and Plan Assessmemt and Plan s/p I&D buttock abscess Plan Wound care IV antibx PTOT Home meds Recheck labs Problems: Comment Review of Relevant I have reviewed the following items johanna (where applicable) has been applied. Labs Laboratory Tests Test 04/12/17 22:22 04/12/17 22:32 04/13/17 06:05 04/14/17 04:22 Erythrocyte Sedimentation Rate 92 (0-15) White Blood Count 19.2 x10^3/uL (4.0-11.0) 16.8 x10^3/uL (4.0-11.0) 16.4 x10^3/uL (4.0-11.0) Red Blood Count 4.70 x10^6/uL (4.30-5.70) 4.73 x10^6/uL (4.30-5.70) 4.29 x10^6/uL (4.30-5.70) Hemoglobin 14.1 g/dL (13.0-17.5) 14.2 g/dL (13.0-17.5) 13.0 g/dL (13.0-17.5) Hematocrit 42.4 % (39.0-53.0) 42.5 % (39.0-53.0) 38.9 % (39.0-53.0) Mean Corpuscular Volume 90 fL (79-100) 90 fL (79-100) 91 fL (79-100) Mean Corpuscular Hemoglobin 30 pg (25-35) 30 pg (25-35) 30 pg (25-35) Mean Corpuscular Hemoglobin Concent 33 g/dL (31-37) 33 g/dL (31-37) 33 g/dL (31-37) Red Cell Distribution Width 15.1 % (11.5-14.5) 14.7 % (11.5-14.5) 15.3 % (11.5-14.5) Platelet Count 537 x10^3/uL (140-400) 468 x10^3/uL (140-400) 515 x10^3/uL (140-400) Neutrophils (%) (Auto) 81 % (31-73) 77 % (31-73) 86 % (31-73) Lymphocytes (%) (Auto) 11 % (24-48) 12 % (24-48) 9 % (24-48) Monocytes (%) (Auto) 6 % (0-9) 8 % (0-9) 5 % (0-9) Eosinophils (%) (Auto) 1 % (0-3) 2 % (0-3) 0 % (0-3) Basophils (%) (Auto) 1 % (0-3) 0 % (0-3) 0 % (0-3) Neutrophils # (Auto) 15.5 x10^3uL (1.8-7.7) 13.0 x10^3uL (1.8-7.7) 14.0 x10^3uL (1.8-7.7) Lymphocytes # (Auto) 2.1 x10^3/uL (1.0-4.8) 2.0 x10^3/uL (1.0-4.8) 1.5 x10^3/uL (1.0-4.8) Monocytes # (Auto) 1.2 x10^3/uL (0.0-1.1) 1.4 x10^3/uL (0.0-1.1) 0.7 x10^3/uL (0.0-1.1) Eosinophils # (Auto) 0.3 x10^3/uL (0.0-0.7) 0.3 x10^3/uL (0.0-0.7) 0.0 x10^3/uL (0.0-0.7) Basophils # (Auto) 0.1 x10^3/uL (0.0-0.2) 0.0 x10^3/uL (0.0-0.2) 0.1 x10^3/uL (0.0-0.2) Segmented Neutrophils % 76 % (35-66) Band Neutrophils % 4 % (0-9) Lymphocytes % 13 % (24-48) Monocytes % 4 % (0-10) Eosinophils % 2 % (0-5) Basophils % 1 % (0-3) Toxic Granulation Slight Platelet Estimate Increased (ADEQUATE) Sodium Level 137 mmol/L (136-145) 140 mmol/L (136-145) Potassium Level 4.5 mmol/L (3.5-5.1) 4.3 mmol/L (3.5-5.1) Chloride Level 99 mmol/L (98-107) 104 mmol/L (98-107) Carbon Dioxide Level 33 mmol/L (21-32) 31 mmol/L (21-32) Anion Gap 5 (6-14) 5 (6-14) Blood Urea Nitrogen 15 mg/dL (8-26) 15 mg/dL (8-26) Creatinine 1.2 mg/dL (0.7-1.3) 1.1 mg/dL (0.7-1.3) Estimated GFR (Cockcroft-Gault) 67.4 74.5 BUN/Creatinine Ratio 13 (6-20) Glucose Level 94 mg/dL (70-99) 92 mg/dL (70-99) Calcium Level 9.5 mg/dL (8.5-10.1) 8.7 mg/dL (8.5-10.1) Total Bilirubin 0.4 mg/dL (0.2-1.0) Aspartate Amino Transf (AST/SGOT) 49 U/L (15-37) Alanine Aminotransferase (ALT/SGPT) 79 U/L (16-63) Alkaline Phosphatase 73 U/L (46-116) Total Protein 7.9 g/dL (6.4-8.2) Albumin 2.8 g/dL (3.4-5.0) Albumin/Globulin Ratio 0.5 (1.0-1.7) Test 04/14/17 13:15 White Blood Count 18.5 x10^3/uL (4.0-11.0) Red Blood Count 4.25 x10^6/uL (4.30-5.70) Hemoglobin 12.9 g/dL (13.0-17.5) Hematocrit 38.4 % (39.0-53.0) Mean Corpuscular Volume 90 fL (79-100) Mean Corpuscular Hemoglobin 30 pg (25-35) Mean Corpuscular Hemoglobin Concent 34 g/dL (31-37) Red Cell Distribution Width 15.0 % (11.5-14.5) Platelet Count 559 x10^3/uL (140-400) Laboratory Tests Test 04/14/17 04:22 04/14/17 13:15 White Blood Count 16.4 x10^3/uL (4.0-11.0) 18.5 x10^3/uL (4.0-11.0) Red Blood Count 4.29 x10^6/uL (4.30-5.70) 4.25 x10^6/uL (4.30-5.70) Hemoglobin 13.0 g/dL (13.0-17.5) 12.9 g/dL (13.0-17.5) Hematocrit 38.9 % (39.0-53.0) 38.4 % (39.0-53.0) Mean Corpuscular Volume 91 fL (79-100) 90 fL (79-100) Mean Corpuscular Hemoglobin 30 pg (25-35) 30 pg (25-35) Mean Corpuscular Hemoglobin Concent 33 g/dL (31-37) 34 g/dL (31-37) Red Cell Distribution Width 15.3 % (11.5-14.5) 15.0 % (11.5-14.5) Platelet Count 515 x10^3/uL (140-400) 559 x10^3/uL (140-400) Neutrophils (%) (Auto) 86 % (31-73) Lymphocytes (%) (Auto) 9 % (24-48) Monocytes (%) (Auto) 5 % (0-9) Eosinophils (%) (Auto) 0 % (0-3) Basophils (%) (Auto) 0 % (0-3) Neutrophils # (Auto) 14.0 x10^3uL (1.8-7.7) Lymphocytes # (Auto) 1.5 x10^3/uL (1.0-4.8) Monocytes # (Auto) 0.7 x10^3/uL (0.0-1.1) Eosinophils # (Auto) 0.0 x10^3/uL (0.0-0.7) Basophils # (Auto) 0.1 x10^3/uL (0.0-0.2) Microbiology 04/12/17 Blood Culture - Preliminary, Resulted NO GROWTH AFTER 1 DAY 04/13/17 Anaerobic/Aerobic Culture, Resulted Pending 04/13/17 Anaerobic Culture Result 1 (CAREN), Resulted Pending 04/13/17 Aerobic Culture - Preliminary, Resulted 04/13/17 Aerobic Culture Result 1 (CAREN) - Preliminary, Resulted Medications Current Medications Acetaminophen/ Hydrocodone Bitart (Lortab 5/325) 2 tab 1X ONCE PO Last administered on 04/12/17 23:04; Start 04/12/17 at 22:30; Stop 04/12/17 at 22:31 ; Status DC Clindamycin Phosphate 50 ml @ 100 mls/hr Q8HRS IV Last administered on 14:19; Start 04/13/17 at 06:00 Ondansetron HCl (Zofran) 4 mg PRN Q8HRS PRN IV NAUSEA/VOMITING Last administered on 04/12/17 23:06; Start 04/12/17 at 22:30; Stop 04/13/17 at 22:29 ; Status DC Morphine Sulfate 4 mg PRN Q2HR PRN IV PAIN Last administered on 04/13/17 08:36 ; Start 04/12/17 at 22:30; Stop 04/13/17 at 22:29; Status DC Sodium Chloride 1,000 ml @ 125 mls/hr Q8H IV Last administered on 04/13/17 05: 47; Start 04/12/17 at 22:30; Stop 04/13/17 at 22:29; Status DC Diphtheria/ Tetanus/Acell Pertussis (Boostrix) 0.5 ml ONCE ONCE VAX IM Last administered on 04/12/17 23:05; Start 04/12/17 at 22:45; Stop 04/12/17 at 22:46 ; Status DC Clindamycin Phosphate 50 ml @ 100 mls/hr ONCE ONCE IV Last administered on 23:05; Start 04/12/17 at 22:45; Stop 04/12/17 at 23:14; Status DC Bupivacaine HCl/ Epinephrine Bitart (Sensorcain-Mpf Epi 0.5%-[id number]) 30 ml STK -MED ONCE .ROUTE ; Start 04/13/17 at 08:59; Stop 04/13/17 at 09:00; Status DC Ondansetron HCl (Zofran) 4 mg 1X ONCE IV ; Start 04/13/17 at 09:00; Stop at 09:03; Status DC Ringer's Solution 1,000 ml @ 75 mls/hr 1X ONCE IV Last administered on 09:00; Start 04/13/17 at 09:15; Stop 04/13/17 at 22:34; Status DC Fentanyl Citrate (Fentanyl 5ml Vial) 250 mcg STK-MED ONCE .ROUTE ; Start at 09:25; Stop 04/13/17 at 09:26; Status DC Propofol 20 ml @ As Directed STK-MED ONCE IV ; Start 04/13/17 at 09:26; Stop 04/13 at 09:27; Status DC Lidocaine HCl (Lidocaine Pf 2% Vial) 5 ml STK-MED ONCE .ROUTE ; Start 04/13/17 at 09:26; Stop 04/13/17 at 09:27; Status DC Ondansetron HCl (Zofran) 4 mg STK-MED ONCE .ROUTE ; Start 04/13/17 at 09:58; Stop 04/13/17 at 09:59; Status DC Dexamethasone Sodium Phosphate (Decadron) 20 mg STK-MED ONCE .ROUTE ; Start 04/13 at 09:58; Stop 04/13/17 at 09:59; Status DC Sodium Hypochlorite (Dakin'S 1/2 Strength) 1 diana 1X ONCE TP Last administered on 04/13/17 10:08; Start 04/13/17 at 10:00; Stop 04/13/17 at 10:01; Status DC Fentanyl Citrate (Fentanyl 2ml Vial) 100 mcg STK-MED ONCE .ROUTE ; Start at 10:24; Stop 04/13/17 at 10:25; Status DC Ondansetron HCl (Zofran) 4 mg PRN Q6HRS PRN IV NAUSEA/VOMITING Last administered on 04/14/17 10:18; Start 04/13/17 at 10:45; Stop 04/14/17 at 10:44; Status DC Fentanyl Citrate (Fentanyl 2ml Vial) 25 mcg PRN Q5MIN PRN IV MILD PAIN; Start 04/13/17 at 10:45; Stop 04/14/17 at 10:44; Status DC Fentanyl Citrate (Fentanyl 2ml Vial) 50 mcg PRN Q5MIN PRN IV MODERATE PAIN Last administered on 04/13/17 11:05; Start 04/13/17 at 10:45; Stop 04/14/17 at 10: 44; Status DC Morphine Sulfate 1 mg PRN Q10MIN PRN IV SEVERE PAIN; Start 04/13/17 at 10:45; Stop 04/14/17 at 10:44; Status DC Ringer's Solution 1,000 ml @ 0 mls/hr Q0M IV ; Start 04/13/17 at 10:32; Stop 04/13/17 at 22:31; Status DC Lidocaine HCl 2 ml PRN 1X PRN ID PRIOR TO IV START; Start 04/13/17 at 10:45; Stop 04/14/17 at 10:44; Status DC Hydromorphone HCl (Dilaudid) 0.5 mg PRN Q10MIN PRN IV SEV PAIN, Second choice; Start 04/13/17 at 10:45; Stop 04/14/17 at 10:44; Status DC Prochlorperazine Edisylate (Compazine) 5 mg PACU PRN PRN IV NAUSEA, MRX1; Start 04/13/17 at 10:45; Stop 04/14/17 at 10:44; Status DC Sevoflurane (Ultane) 60 ml STK-MED ONCE IH ; Start 04/13/17 at 10:37; Stop at 10:38; Status DC Acetaminophen/ Hydrocodone Bitart (Lortab 5/325) 1 tab PRN Q4HRS PRN PO PAIN Last administered on 04/14/17 05:38; Start 04/13/17 at 11:45 Ibuprofen (Motrin) 600 mg PRN Q6HRS PRN PO INFLAMMATION Last administered on 12:59; Start 04/13/17 at 11:45; Stop 04/14/17 at 09:13; Status DC Oxycodone/ Acetaminophen (Percocet 5/325) 2 tab PRN Q4HRS PRN PO PAIN SEVERE Last administered on 04/14/17 10:19; Start 04/13/17 at 11:45 Sodium Hypochlorite (Dakin'S 1/4 Strength) 1 diana PRN QID PRN TP WITH DRESSING CHANGES Last administered on 04/14/17 10:19; Start 04/13/17 at 20:45 Lorazepam (Ativan) 1 mg PRN Q6HRS PRN IV ANXIETY / AGITATION Last administered on 04/14/17 10:18; Start 04/14/17 at 10:00 Lorazepam (Ativan) 2 mg PRN Q6HRS PRN IV ANXIETY / AGITATION; Start 04/14/17 at 10:00 Polyethylene Glycol (miraLAX PACKET) 17 gm PRN DAILY PRN PO CONSTIPATION Last administered on 04/14/17 10:19; Start 04/14/17 at 10:00 Morphine Sulfate 4 mg 1X ONCE IV Last administered on 04/14/17 12:30; Start at 12:45; Stop 04/14/17 at 12:46; Status DC Morphine Sulfate 4 mg PRN Q2HR PRN IV PAIN Last administered on 04/14/17 13:11 ; Start 04/14/17 at 12:45 Ondansetron HCl (Zofran) 4 mg PRN Q6HRS PRN IV NAUSEA/VOMITING; Start 04/14/17 at 13:00; Stop 04/14/17 at 21:00 Fentanyl Citrate (Fentanyl 2ml Vial) 25 mcg PRN Q5MIN PRN IV MILD PAIN; Start 04/14/17 at 13:00; Stop 04/14/17 at 21:00 Fentanyl Citrate (Fentanyl 2ml Vial) 50 mcg PRN Q5MIN PRN IV MODERATE PAIN; Start 04/14/17 at 13:00; Stop 04/14/17 at 21:00 Morphine Sulfate 1 mg PRN Q10MIN PRN IV SEVERE PAIN; Start 04/14/17 at 13:00; Stop 04/14/17 at 21:00 Ringer's Solution 1,000 ml @ 30 mls/hr Q24H IV Last administered on 04/14/17t 13:31; Start 04/14/17 at 13:00; Stop 04/14/17 at 21:00 Lidocaine HCl 2 ml PRN 1X PRN ID PRIOR TO IV START; Start 04/14/17 at 13:00; Stop 04/14/17 at 21:00 Hydromorphone HCl (Dilaudid) 0.5 mg PRN Q10MIN PRN IV SEV PAIN, Second choice; Start 04/14/17 at 13:00; Stop 04/14/17 at 21:00 Prochlorperazine Edisylate (Compazine) 5 mg PACU PRN PRN IV NAUSEA, MRX1; Start 04/14/17 at 13:00; Stop 04/14/17 at 21:00 Propofol 20 ml @ As Directed STK-MED ONCE IV ; Start 04/14/17 at 13:21; Stop 04/14 at 13:22; Status DC Lidocaine HCl (Lidocaine Pf 2% Vial) 5 ml STK-MED ONCE .ROUTE ; Start 04/14/17 at 13:21; Stop 04/14/17 at 13:22; Status DC Famotidine (Pepcid) 20 mg STK-MED ONCE .ROUTE ; Start 04/14/17 at 13:21; Stop 04/14/17 at 13:22; Status DC Ondansetron HCl (Zofran) 4 mg STK-MED ONCE .ROUTE ; Start 04/14/17 at 13:22; Stop 04/14/17 at 13:23; Status DC Dexamethasone Sodium Phosphate (Decadron) 20 mg STK-MED ONCE .ROUTE ; Start 04/14 at 13:22; Stop 04/14/17 at 13:23; Status DC Succinylcholine Chloride (Anectine) 200 mg STK-MED ONCE .ROUTE ; Start 04/14/17 at 13:22; Stop 04/14/17 at 13:23; Status DC Sevoflurane (Ultane) 30 ml STK-MED ONCE IH ; Start 04/14/17 at 13:31; Stop at 13:32; Status DC Fentanyl Citrate (Fentanyl 2ml Vial) 100 mcg STK-MED ONCE .ROUTE ; Start at 13:56; Stop 04/14/17 at 13:57; Status DC Sevoflurane (Ultane) 30 ml STK-MED ONCE IH ; Start 04/14/17 at 14:38; Stop at 14:39; Status DC Active Scripts Active No Active Prescriptions or Reported Medications Vitals/I & O Vital Sign - Last 24 Hours 04/13/17 04/13/17 04/13/17 04/13/17 18:22 19:00 20:00 23:00 Temp 97.5 97.9 97.5 97.9 Pulse 75 94 Resp 20 20 B/P (MAP) 141/78 (99) 115/76 (89) Pulse Ox 95 94 O2 Delivery Room Air Room Air Room Air Room Air 04/13/17 04/14/17 04/14/17 04/14/17 23:08 03:00 05:38 06:40 Temp 98.9 98.9 Pulse 66 Resp 16 18 18 16 B/P (MAP) 136/86 (103) Pulse Ox 96 O2 Delivery Room Air Room Air Room Air 04/14/17 04/14/17 04/14/17 04/14/17 07:00 10:19 11:00 11:48 Temp 97.5 97.3 97.5 97.3 Pulse 67 92 Resp 20 20 B/P (MAP) 142/86 (104) 131/75 (93) Pulse Ox 97 93 O2 Delivery Room Air Room Air Room Air Room Air 04/14/17 04/14/17 04/14/17 04/14/17 12:30 13:11 13:25 15:03 Temp 98.2 98.2 Pulse 90 Resp 18 B/P (MAP) 134/94 Pulse Ox 96 O2 Delivery Room Air Room Air Room Air Mask O2 Flow Rate 10 04/14/17 04/14/17 04/14/17 04/14/17 15:03 15:18 15:30 15:33 Temp 97.0 97.0 97.0 97.0 Pulse 79 79 96 Resp 20 20 20 B/P (MAP) 136/72 124/71 138/80 Pulse Ox 100 99 99 O2 Delivery Simple Mask Simple Mask Nasal Cannula Nasal Cannula O2 Flow Rate 10 10 2 2 Intake and Output 04/13/17 04/13/17 04/14/17 15:00 23:00 07:00 Intake Total 520 ml 250 ml Output Total 300 ml Balance 220 ml 250 ml CASTLE,NIAL K III DO Apr 14, 2017 17:41
[2017-04-14 19:42] VITALS: BP 176/99
[2017-04-14 19:56] VITALS: BP 146/92
--- NOTE | 2017-04-14 20:14 | OP ---
DATE OF SURGERY: 04/14/2017 PREOPERATIVE DIAGNOSIS: Bleeding from gluteal wound. POSTOPERATIVE DIAGNOSIS: Bleeding from gluteal wound. PROCEDURE: Gluteal wound exploration and control of bleeding with suture ligation and cautery. SURGEON: No Lyle M.D. ANESTHESIA: General. ESTIMATED BLOOD LOSS: 25 mL. IV FLUIDS: 300 mL. INDICATIONS: The patient is a 41-year-old male who presents with a very large intramuscular, complex left gluteal abscess. He has underwent an incision and drainage yesterday. Today, during dressing change the wound was bleeding profusely and this could not be controlled at the bedside with local measures including holding pressure and application of FloSeal. He was then therefore returned emergently to the operating room for wound exploration and control of bleeding. FINDINGS: He had diffuse bleeding that was controlled with cautery, but there were several areas of pulsatile bleeding within the subcutaneous fat that were controlled with suture ligation. PROCEDURE IN DETAIL: After informed consent was obtained, the patient was taken to the operating room, placed in supine position. After adequate induction of general anesthesia, he was placed on his right side with his left side up. He was prepped and draped in usual sterile fashion. The packing had been removed. He did have pulsatile bleeding from the subcutaneous fat and lesser from the muscle belly. The wound itself was clean and it was irrigated. Other than bleeding, it was clean in terms of infection. The surrounding erythema and induration that was present yesterday has completely resolved. There was no foul odor. There was no necrotic tissue and no purulence identified. The areas of pulsatile bleeding were oversewn with 3-0 Vicryl sutures. The more diffuse dry areas that were just oozing were controlled with cautery. At the completion of the wound exploration and control of bleeding, the wound was hemostatic. There was no significant tunneling and a single piece of black sponge was used to fill the wound and then the wound VAC was applied. The wound team Gabby and her colleague were present in the operating room and completed putting on the wound VAC. He tolerated the procedure well. There were no apparent complications. He is in the process of being transferred in stable condition to the recovery room. NO LYEL MD DR: SILVANA/aung JOB#: [id number] / [id number] VITALIY Cordero MD [facility] [place]
[2017-04-14 23:01] VITALS: BP 146/90
[2017-04-15] MEDS: HYDROcodone/APAP 5/325MG 1 TAB TABLET PO PRN ×2 (02:52→09:11)
[2017-04-15 03:01] VITALS: BP 147/77
[2017-04-15] MEDS: CLINDAMYCIN 600MG PREMIX 50 ML IV SCH (05:56)
[2017-04-15 07:00] VITALS: BP 126/70
[2017-04-15 11:00] VITALS: BP 131/72
--- NOTE | 2017-04-15 11:08 | PDOC ---
Provider Note Provider Note SURG Kvng for [place] POD 1/2 wound vac on, non bloody aspirate adequate pain control had hiccups last noc per significant other continue vac offer Gas-x EUGENIO MARTINO MD Apr 15, 2017 11:08
[2017-04-15] MEDS ORDERED: SIMETHICONE 80 MG TAB.CHEW PO PRN (11:15)
--- NOTE | 2017-04-15 13:30 | PDOC ---
PROGRESS NOTES Chief Complaint Chief Complaint 1. Left buttock cellulitis./abscess s/p I and D and now wound vac 2. SIRS POA, infectious, no oragn dysfunction 3. Leukocytosis, recative thrombocytosis sec to above infection History of Present Illness History of Present Illness Wants to go home BUt waiting on insurance for wound vac etc - monday WBC persistently high 18- not on steroids BUt no fever ANAEROBIC-AEROBIC CULTURE Preliminary Preliminary report ANAEROBIC RES 1 Preliminary Comment No anaerobes recovered in 48 hours. Performed at: [address] [id number] Reel Slitter: Leigh Spencer MD, Phone: [phone] AEROBIC CULT Final Final report AEROBIC RES 1 Final Staphylococcus aureus Heavy growth Based on resistance to penicillin and susceptibility to oxacillin this isolate would be susceptible to: * Penicillinase-stable penicillins; such as: Cloxacillin Dicloxacillin Nafcillin * Beta-lactam/beta-lactamase inhibitor combinations; such as: Amoxicillin-clavulanic acid Ampicillin-sulbactam * Antistaphylococcal cephems; such as: Cefaclor Cefuroxime * Antistaphylococcal carbapenems; such as: Imipenem Meropenem ANTIMICROBIAL SUSCEPTIBILITY Final Comment PLAN: Shift to nafcillin given sensitivities and peristent WBC\ Recheck WBC antionette Will need to wait for Monday for insurance approval wound vac TRial of thorazine for hiccups Vitals Vitals Vital Signs Date Time Temp Pulse Resp B/P (MAP) Pulse Ox O2 Delivery O2 Flow Rate FiO2 04/15/17 11:00 98.3 82 20 131/72 (91) 96 Room Air 98.3 04/14/17 15:33 2 Physical Exam General: Alert, Oriented X3, Cooperative, No acute distress Heart: Regular rate, Normal S1, Normal S2, No murmurs Abdomen: Normal bowel sounds, Soft, No tenderness, No hepatosplenomegaly, No masses Extremities: No clubbing, No cyanosis, No edema, Normal pulses, No tenderness/ swelling Skin: Other (left buttock wound, significant bleeding with removal of loose gauze, clots noted in wound bed; wound vac) Review of Systems Review of Systems no issues denies 14 pt Comment Review of Relevant I have reviewed the following items johanna (where applicable) has been applied. Labs Laboratory Tests Test 04/14/17 04:22 04/14/17 13:15 White Blood Count 16.4 x10^3/uL (4.0-11.0) 18.5 x10^3/uL (4.0-11.0) Red Blood Count 4.29 x10^6/uL (4.30-5.70) 4.25 x10^6/uL (4.30-5.70) Hemoglobin 13.0 g/dL (13.0-17.5) 12.9 g/dL (13.0-17.5) Hematocrit 38.9 % (39.0-53.0) 38.4 % (39.0-53.0) Mean Corpuscular Volume 91 fL (79-100) 90 fL (79-100) Mean Corpuscular Hemoglobin 30 pg (25-35) 30 pg (25-35) Mean Corpuscular Hemoglobin Concent 33 g/dL (31-37) 34 g/dL (31-37) Red Cell Distribution Width 15.3 % (11.5-14.5) 15.0 % (11.5-14.5) Platelet Count 515 x10^3/uL (140-400) 559 x10^3/uL (140-400) Neutrophils (%) (Auto) 86 % (31-73) Lymphocytes (%) (Auto) 9 % (24-48) Monocytes (%) (Auto) 5 % (0-9) Eosinophils (%) (Auto) 0 % (0-3) Basophils (%) (Auto) 0 % (0-3) Neutrophils # (Auto) 14.0 x10^3uL (1.8-7.7) Lymphocytes # (Auto) 1.5 x10^3/uL (1.0-4.8) Monocytes # (Auto) 0.7 x10^3/uL (0.0-1.1) Eosinophils # (Auto) 0.0 x10^3/uL (0.0-0.7) Basophils # (Auto) 0.1 x10^3/uL (0.0-0.2) Microbiology 04/12/17 Blood Culture - Preliminary, Resulted NO GROWTH AFTER 2 DAYS 04/13/17 Anaerobic/Aerobic Culture - Preliminary, Resulted 04/13/17 Anaerobic Culture Result 1 (CAREN) - Preliminary, Resulted 04/13/17 Aerobic Culture - Final, Resulted 04/13/17 Aerobic Culture Result 1 (CAREN) - Final, Resulted 04/13/17 Antimicrobic Susceptibility - Final, Resulted Medications Current Medications Acetaminophen/ Hydrocodone Bitart (Lortab 5/325) 2 tab 1X ONCE PO Last administered on 04/12/17 23:04; Start 04/12/17 at 22:30; Stop 04/12/17 at 22:31 ; Status DC Clindamycin Phosphate 50 ml @ 100 mls/hr Q8HRS IV Last administered on 05:56; Start 04/13/17 at 06:00 Ondansetron HCl (Zofran) 4 mg PRN Q8HRS PRN IV NAUSEA/VOMITING Last administered on 04/12/17 23:06; Start 04/12/17 at 22:30; Stop 04/13/17 at 22:29 ; Status DC Morphine Sulfate 4 mg PRN Q2HR PRN IV PAIN Last administered on 04/13/17 08:36 ; Start 04/12/17 at 22:30; Stop 04/13/17 at 22:29; Status DC Sodium Chloride 1,000 ml @ 125 mls/hr Q8H IV Last administered on 04/13/17 05: 47; Start 04/12/17 at 22:30; Stop 04/13/17 at 22:29; Status DC Diphtheria/ Tetanus/Acell Pertussis (Boostrix) 0.5 ml ONCE ONCE VAX IM Last administered on 04/12/17 23:05; Start 04/12/17 at 22:45; Stop 04/12/17 at 22:46 ; Status DC Clindamycin Phosphate 50 ml @ 100 mls/hr ONCE ONCE IV Last administered on 23:05; Start 04/12/17 at 22:45; Stop 04/12/17 at 23:14; Status DC Bupivacaine HCl/ Epinephrine Bitart (Sensorcain-Mpf Epi 0.5%-1:370913) 30 ml STK -MED ONCE .ROUTE ; Start 04/13/17 at 08:59; Stop 04/13/17 at 09:00; Status DC Ondansetron HCl (Zofran) 4 mg 1X ONCE IV ; Start 04/13/17 at 09:00; Stop at 09:03; Status DC Ringer's Solution 1,000 ml @ 75 mls/hr 1X ONCE IV Last administered on 09:00; Start 04/13/17 at 09:15; Stop 04/13/17 at 22:34; Status DC Fentanyl Citrate (Fentanyl 5ml Vial) 250 mcg STK-MED ONCE .ROUTE ; Start at 09:25; Stop 04/13/17 at 09:26; Status DC Propofol 20 ml @ As Directed STK-MED ONCE IV ; Start 04/13/17 at 09:26; Stop 04/13 at 09:27; Status DC Lidocaine HCl (Lidocaine Pf 2% Vial) 5 ml STK-MED ONCE .ROUTE ; Start 04/13/17 at 09:26; Stop 04/13/17 at 09:27; Status DC Ondansetron HCl (Zofran) 4 mg STK-MED ONCE .ROUTE ; Start 04/13/17 at 09:58; Stop 04/13/17 at 09:59; Status DC Dexamethasone Sodium Phosphate (Decadron) 20 mg STK-MED ONCE .ROUTE ; Start 04/13 at 09:58; Stop 04/13/17 at 09:59; Status DC Sodium Hypochlorite (Dakin'S 1/2 Strength) 1 diana 1X ONCE TP Last administered on 04/13/17 10:08; Start 04/13/17 at 10:00; Stop 04/13/17 at 10:01; Status DC Fentanyl Citrate (Fentanyl 2ml Vial) 100 mcg STK-MED ONCE .ROUTE ; Start at 10:24; Stop 04/13/17 at 10:25; Status DC Ondansetron HCl (Zofran) 4 mg PRN Q6HRS PRN IV NAUSEA/VOMITING Last administered on 04/14/17 10:18; Start 04/13/17 at 10:45; Stop 04/14/17 at 10:44; Status DC Fentanyl Citrate (Fentanyl 2ml Vial) 25 mcg PRN Q5MIN PRN IV MILD PAIN; Start 04/13/17 at 10:45; Stop 04/14/17 at 10:44; Status DC Fentanyl Citrate (Fentanyl 2ml Vial) 50 mcg PRN Q5MIN PRN IV MODERATE PAIN Last administered on 04/13/17 11:05; Start 04/13/17 at 10:45; Stop 04/14/17 at 10: 44; Status DC Morphine Sulfate 1 mg PRN Q10MIN PRN IV SEVERE PAIN; Start 04/13/17 at 10:45; Stop 04/14/17 at 10:44; Status DC Ringer's Solution 1,000 ml @ 0 mls/hr Q0M IV ; Start 04/13/17 at 10:32; Stop 04/13/17 at 22:31; Status DC Lidocaine HCl 2 ml PRN 1X PRN ID PRIOR TO IV START; Start 04/13/17 at 10:45; Stop 04/14/17 at 10:44; Status DC Hydromorphone HCl (Dilaudid) 0.5 mg PRN Q10MIN PRN IV SEV PAIN, Second choice; Start 04/13/17 at 10:45; Stop 04/14/17 at 10:44; Status DC Prochlorperazine Edisylate (Compazine) 5 mg PACU PRN PRN IV NAUSEA, MRX1; Start 04/13/17 at 10:45; Stop 04/14/17 at 10:44; Status DC Sevoflurane (Ultane) 60 ml STK-MED ONCE IH ; Start 04/13/17 at 10:37; Stop at 10:38; Status DC Acetaminophen/ Hydrocodone Bitart (Lortab 5/325) 1 tab PRN Q4HRS PRN PO PAIN Last administered on 04/15/17 09:11; Start 04/13/17 at 11:45 Ibuprofen (Motrin) 600 mg PRN Q6HRS PRN PO INFLAMMATION Last administered on 12:59; Start 04/13/17 at 11:45; Stop 04/14/17 at 09:13; Status DC Oxycodone/ Acetaminophen (Percocet 5/325) 2 tab PRN Q4HRS PRN PO PAIN SEVERE Last administered on 04/14/17 10:19; Start 04/13/17 at 11:45 Sodium Hypochlorite (Dakin'S 1/4 Strength) 1 diana PRN QID PRN TP WITH DRESSING CHANGES Last administered on 04/14/17 10:19; Start 04/13/17 at 20:45 Lorazepam (Ativan) 1 mg PRN Q6HRS PRN IV ANXIETY / AGITATION Last administered on 04/14/17 10:18; Start 04/14/17 at 10:00 Lorazepam (Ativan) 2 mg PRN Q6HRS PRN IV ANXIETY / AGITATION Last administered on 04/15/17 02:55; Start 04/14/17 at 10:00 Polyethylene Glycol (miraLAX PACKET) 17 gm PRN DAILY PRN PO CONSTIPATION Last administered on 04/14/17 10:19; Start 04/14/17 at 10:00 Morphine Sulfate 4 mg 1X ONCE IV Last administered on 04/14/17 12:30; Start at 12:45; Stop 04/14/17 at 12:46; Status DC Morphine Sulfate 4 mg PRN Q2HR PRN IV PAIN Last administered on 04/14/17 13:11 ; Start 04/14/17 at 12:45 Ondansetron HCl (Zofran) 4 mg PRN Q6HRS PRN IV NAUSEA/VOMITING; Start 04/14/17 at 13:00; Stop 04/14/17 at 21:00; Status DC Fentanyl Citrate (Fentanyl 2ml Vial) 25 mcg PRN Q5MIN PRN IV MILD PAIN; Start 04/14/17 at 13:00; Stop 04/14/17 at 21:00; Status DC Fentanyl Citrate (Fentanyl 2ml Vial) 50 mcg PRN Q5MIN PRN IV MODERATE PAIN; Start 04/14/17 at 13:00; Stop 04/14/17 at 21:00; Status DC Morphine Sulfate 1 mg PRN Q10MIN PRN IV SEVERE PAIN; Start 04/14/17 at 13:00; Stop 04/14/17 at 21:00; Status DC Ringer's Solution 1,000 ml @ 30 mls/hr Q24H IV Last administered on 04/14/17 13:31; Start 04/14/17 at 13:00; Stop 04/14/17 at 21:00; Status DC Lidocaine HCl 2 ml PRN 1X PRN ID PRIOR TO IV START; Start 04/14/17 at 13:00; Stop 04/14/17 at 21:00; Status DC Hydromorphone HCl (Dilaudid) 0.5 mg PRN Q10MIN PRN IV SEV PAIN, Second choice; Start 04/14/17 at 13:00; Stop 04/14/17 at 21:00; Status DC Prochlorperazine Edisylate (Compazine) 5 mg PACU PRN PRN IV NAUSEA, MRX1; Start 04/14/17 at 13:00; Stop 04/14/17 at 21:00; Status DC Propofol 20 ml @ As Directed STK-MED ONCE IV ; Start 04/14/17 at 13:21; Stop 04/14 at 13:22; Status DC Lidocaine HCl (Lidocaine Pf 2% Vial) 5 ml STK-MED ONCE .ROUTE ; Start 04/14/17 at 13:21; Stop 04/14/17 at 13:22; Status DC Famotidine (Pepcid) 20 mg STK-MED ONCE .ROUTE ; Start 04/14/17 at 13:21; Stop 04/14/17 at 13:22; Status DC Ondansetron HCl (Zofran) 4 mg STK-MED ONCE .ROUTE ; Start 04/14/17 at 13:22; Stop 04/14/17 at 13:23; Status DC Dexamethasone Sodium Phosphate (Decadron) 20 mg STK-MED ONCE .ROUTE ; Start 04/14 at 13:22; Stop 04/14/17 at 13:23; Status DC Succinylcholine Chloride (Anectine) 200 mg STK-MED ONCE .ROUTE ; Start 04/14/17 at 13:22; Stop 04/14/17 at 13:23; Status DC Sevoflurane (Ultane) 30 ml STK-MED ONCE IH ; Start 04/14/17 at 13:31; Stop at 13:32; Status DC Fentanyl Citrate (Fentanyl 2ml Vial) 100 mcg STK-MED ONCE .ROUTE ; Start at 13:56; Stop 04/14/17 at 13:57; Status DC Sevoflurane (Ultane) 30 ml STK-MED ONCE IH ; Start 04/14/17 at 14:38; Stop at 14:39; Status DC Simethicone (Gas-X) 80 mg PRN AFTMEALHC PRN PO GAS / BLOATING; Start 04/15/17 at 11:15 Active Scripts Active No Active Prescriptions or Reported Medications Vitals/I & O Vital Sign - Last 24 Hours 04/14/17 04/14/17 04/14/17 04/14/17 15:03 15:03 15:18 15:30 Temp 97.0 97.0 Pulse 79 79 Resp 20 20 B/P (MAP) 136/72 124/71 Pulse Ox 100 99 O2 Delivery Mask Simple Mask Simple Mask Nasal Cannula O2 Flow Rate 10 10 10 2 04/14/17 04/14/17 04/14/17 04/14/17 15:33 19:42 19:56 20:00 Temp 97.0 97.5 97.0 97.5 Pulse 96 106 Resp 20 18 B/P (MAP) 138/80 176/99 (124) 146/92 (110) Pulse Ox 99 95 O2 Delivery Nasal Cannula Room Air Room Air O2 Flow Rate 2 04/14/17 04/15/17 04/15/17 04/15/17 23:01 02:52 03:01 04:00 Temp 98.1 98.2 98.1 98.2 Pulse 93 90 Resp 18 16 18 16 B/P (MAP) 146/90 (108) 147/77 (100) Pulse Ox 96 95 O2 Delivery Room Air Room Air Room Air 04/15/17 04/15/17 04/15/17 04/15/17 07:00 07:40 09:11 10:16 Temp 98.3 98.3 Pulse 78 Resp 20 B/P (MAP) 126/70 (88) Pulse Ox 96 O2 Delivery Room Air Room Air Room Air Room Air 04/15/17 11:00 Temp 98.3 98.3 Pulse 82 Resp 20 B/P (MAP) 131/72 (91) Pulse Ox 96 O2 Delivery Room Air Intake and Output 04/14/17 04/14/17 04/15/17 15:00 23:00 07:00 Intake Total 550 ml 241 ml Output Total 25 ml Balance 525 ml 241 ml LEONIE ANNA MD Apr 15, 2017 13:30
[2017-04-15] MEDS ORDERED: chlorproMAZINE 25 MG TABLET PO PRN (14:15)
[2017-04-15] MEDS: NAFCILLIN 2 GM in IV NORMAL SALINE 100ML 100 ML IV SCH ×3 (14:23→23:49)
[2017-04-15 15:00] VITALS: BP 145/74
[2017-04-15 19:35] VITALS: BP 132/78
[2017-04-15 23:32] VITALS: BP 143/80
[2017-04-16] MEDS: NAFCILLIN 2 GM in IV NORMAL SALINE 100ML 100 ML IV SCH ×5 (04:31→20:27)
[2017-04-16 07:00] VITALS: BP 117/82
--- NOTE | 2017-04-16 10:09 | PDOC ---
Provider Note Provider Note THOMAS Martino for Dr Angela sleeping soundly I did not wake him wound vac in place with serosanguineous drainage continue wound [facility] with wound vac EUGENIO MARTINO MD Apr 16, 2017 10:09
[2017-04-16 11:00] VITALS: BP 140/87
--- NOTE | 2017-04-16 11:18 | PDOC ---
PROGRESS NOTES Chief Complaint Chief Complaint 1. Left buttock cellulitis./abscess s/p I and D and now wound vac 2. SIRS POA, infectious, no oragn dysfunction 3. Leukocytosis, recative thrombocytosis sec to above infection History of Present Illness History of Present Illness Wants to go home BUt waiting on insurance for wound vac etc - monday WBC persistently high 18- not on steroids BUt no fever ANAEROBIC-AEROBIC CULTURE Preliminary Preliminary report ANAEROBIC RES 1 Preliminary Comment No anaerobes recovered in 48 hours. Performed at: [address] [id number] Artist'S Manager: Leigh Spencer MD, Phone: [phone] AEROBIC CULT Final Final report AEROBIC RES 1 Final Staphylococcus aureus Heavy growth Based on resistance to penicillin and susceptibility to oxacillin this isolate would be susceptible to: * Penicillinase-stable penicillins; such as: Cloxacillin Dicloxacillin Nafcillin * Beta-lactam/beta-lactamase inhibitor combinations; such as: Amoxicillin-clavulanic acid Ampicillin-sulbactam * Antistaphylococcal cephems; such as: Cefaclor Cefuroxime * Antistaphylococcal carbapenems; such as: Imipenem Meropenem ANTIMICROBIAL SUSCEPTIBILITY Final Comment PLAN: Shift to nafcillin given sensitivities and peristent WBC\ CBC still pending as of this moment Will need to wait for Monday for insurance approval wound vac TRial of thorazine for hiccups Vitals Vitals Vital Signs Date Time Temp Pulse Resp B/P (MAP) Pulse Ox O2 Delivery O2 Flow Rate FiO2 04/16/17 11:00 98.1 78 16 140/87 (104) 97 Room Air 98.1 Physical Exam General: Alert, Oriented X3, Cooperative, No acute distress Heart: Regular rate, Normal S1, Normal S2, No murmurs Abdomen: Normal bowel sounds, Soft, No tenderness, No hepatosplenomegaly, No masses Extremities: No clubbing, No cyanosis, No edema, Normal pulses, No tenderness/ swelling Skin: Other (left buttock wound, significant bleeding with removal of loose gauze, clots noted in wound bed; wound vac) Review of Systems Review of Systems carmelo 14 pt systems reviewed Comment Review of Relevant I have reviewed the following items johanna (where applicable) has been applied. Labs Laboratory Tests Test 04/14/17 13:15 White Blood Count 18.5 x10^3/uL (4.0-11.0) Red Blood Count 4.25 x10^6/uL (4.30-5.70) Hemoglobin 12.9 g/dL (13.0-17.5) Hematocrit 38.4 % (39.0-53.0) Mean Corpuscular Volume 90 fL (79-100) Mean Corpuscular Hemoglobin 30 pg (25-35) Mean Corpuscular Hemoglobin Concent 34 g/dL (31-37) Red Cell Distribution Width 15.0 % (11.5-14.5) Platelet Count 559 x10^3/uL (140-400) Microbiology 04/12/17 Blood Culture - Preliminary, Resulted NO GROWTH AFTER 3 DAYS 04/13/17 Anaerobic/Aerobic Culture - Preliminary, Resulted 04/13/17 Anaerobic Culture Result 1 (CAREN) - Preliminary, Resulted 04/13/17 Aerobic Culture - Final, Resulted 04/13/17 Aerobic Culture Result 1 (CAREN) - Final, Resulted 04/13/17 Antimicrobic Susceptibility - Final, Resulted Medications Current Medications Acetaminophen/ Hydrocodone Bitart (Lortab 5/325) 2 tab 1X ONCE PO Last administered on 04/12/17 23:04; Start 04/12/17 at 22:30; Stop 04/12/17 at 22:31 ; Status DC Clindamycin Phosphate 50 ml @ 100 mls/hr Q8HRS IV Last administered on 05:56; Start 04/13/17 at 06:00; Stop 04/15/17 at 13:31; Status DC Ondansetron HCl (Zofran) 4 mg PRN Q8HRS PRN IV NAUSEA/VOMITING Last administered on 04/12/17 23:06; Start 04/12/17 at 22:30; Stop 04/13/17 at 22:29 ; Status DC Morphine Sulfate 4 mg PRN Q2HR PRN IV PAIN Last administered on 04/13/17 08:36 ; Start 04/12/17 at 22:30; Stop 04/13/17 at 22:29; Status DC Sodium Chloride 1,000 ml @ 125 mls/hr Q8H IV Last administered on 04/13/17 05: 47; Start 04/12/17 at 22:30; Stop 04/13/17 at 22:29; Status DC Diphtheria/ Tetanus/Acell Pertussis (Boostrix) 0.5 ml ONCE ONCE VAX IM Last administered on 04/12/17 23:05; Start 04/12/17 at 22:45; Stop 04/12/17 at 22:46 ; Status DC Clindamycin Phosphate 50 ml @ 100 mls/hr ONCE ONCE IV Last administered on 23:05; Start 04/12/17 at 22:45; Stop 04/12/17 at 23:14; Status DC Bupivacaine HCl/ Epinephrine Bitart (Sensorcain-Mpf Epi 0.5%-1:672547) 30 ml STK -MED ONCE .ROUTE ; Start 04/13/17 at 08:59; Stop 04/13/17 at 09:00; Status DC Ondansetron HCl (Zofran) 4 mg 1X ONCE IV ; Start 04/13/17 at 09:00; Stop at 09:03; Status DC Ringer's Solution 1,000 ml @ 75 mls/hr 1X ONCE IV Last administered on 09:00; Start 04/13/17 at 09:15; Stop 04/13/17 at 22:34; Status DC Fentanyl Citrate (Fentanyl 5ml Vial) 250 mcg STK-MED ONCE .ROUTE ; Start at 09:25; Stop 04/13/17 at 09:26; Status DC Propofol 20 ml @ As Directed STK-MED ONCE IV ; Start 04/13/17 at 09:26; Stop 04/13 at 09:27; Status DC Lidocaine HCl (Lidocaine Pf 2% Vial) 5 ml STK-MED ONCE .ROUTE ; Start 04/13/17 at 09:26; Stop 04/13/17 at 09:27; Status DC Ondansetron HCl (Zofran) 4 mg STK-MED ONCE .ROUTE ; Start 04/13/17 at 09:58; Stop 04/13/17 at 09:59; Status DC Dexamethasone Sodium Phosphate (Decadron) 20 mg STK-MED ONCE .ROUTE ; Start 04/13 at 09:58; Stop 04/13/17 at 09:59; Status DC Sodium Hypochlorite (Dakin'S 1/2 Strength) 1 diana 1X ONCE TP Last administered on 04/13/17 10:08; Start 04/13/17 at 10:00; Stop 04/13/17 at 10:01; Status DC Fentanyl Citrate (Fentanyl 2ml Vial) 100 mcg STK-MED ONCE .ROUTE ; Start at 10:24; Stop 04/13/17 at 10:25; Status DC Ondansetron HCl (Zofran) 4 mg PRN Q6HRS PRN IV NAUSEA/VOMITING Last administered on 04/14/17 10:18; Start 04/13/17 at 10:45; Stop 04/14/17 at 10:44; Status DC Fentanyl Citrate (Fentanyl 2ml Vial) 25 mcg PRN Q5MIN PRN IV MILD PAIN; Start 04/13/17 at 10:45; Stop 04/14/17 at 10:44; Status DC Fentanyl Citrate (Fentanyl 2ml Vial) 50 mcg PRN Q5MIN PRN IV MODERATE PAIN Last administered on 04/13/17 11:05; Start 04/13/17 at 10:45; Stop 04/14/17 at 10: 44; Status DC Morphine Sulfate 1 mg PRN Q10MIN PRN IV SEVERE PAIN; Start 04/13/17 at 10:45; Stop 04/14/17 at 10:44; Status DC Ringer's Solution 1,000 ml @ 0 mls/hr Q0M IV ; Start 04/13/17 at 10:32; Stop 04/13/17 at 22:31; Status DC Lidocaine HCl 2 ml PRN 1X PRN ID PRIOR TO IV START; Start 04/13/17 at 10:45; Stop 04/14/17 at 10:44; Status DC Hydromorphone HCl (Dilaudid) 0.5 mg PRN Q10MIN PRN IV SEV PAIN, Second choice; Start 04/13/17 at 10:45; Stop 04/14/17 at 10:44; Status DC Prochlorperazine Edisylate (Compazine) 5 mg PACU PRN PRN IV NAUSEA, MRX1; Start 04/13/17 at 10:45; Stop 04/14/17 at 10:44; Status DC Sevoflurane (Ultane) 60 ml STK-MED ONCE IH ; Start 04/13/17 at 10:37; Stop at 10:38; Status DC Acetaminophen/ Hydrocodone Bitart (Lortab 5/325) 1 tab PRN Q4HRS PRN PO PAIN Last administered on 04/15/17 09:11; Start 04/13/17 at 11:45 Ibuprofen (Motrin) 600 mg PRN Q6HRS PRN PO INFLAMMATION Last administered on 12:59; Start 04/13/17 at 11:45; Stop 04/14/17 at 09:13; Status DC Oxycodone/ Acetaminophen (Percocet 5/325) 2 tab PRN Q4HRS PRN PO PAIN SEVERE Last administered on 04/14/17 10:19; Start 04/13/17 at 11:45 Sodium Hypochlorite (Dakin'S 1/4 Strength) 1 diana PRN QID PRN TP WITH DRESSING CHANGES Last administered on 04/14/17 10:19; Start 04/13/17 at 20:45 Lorazepam (Ativan) 1 mg PRN Q6HRS PRN IV ANXIETY / AGITATION Last administered on 04/14/17 10:18; Start 04/14/17 at 10:00 Lorazepam (Ativan) 2 mg PRN Q6HRS PRN IV ANXIETY / AGITATION Last administered on 04/15/17 20:12; Start 04/14/17 at 10:00 Polyethylene Glycol (miraLAX PACKET) 17 gm PRN DAILY PRN PO CONSTIPATION Last administered on 04/14/17 10:19; Start 04/14/17 at 10:00 Morphine Sulfate 4 mg 1X ONCE IV Last administered on 04/14/17 12:30; Start at 12:45; Stop 04/14/17 at 12:46; Status DC Morphine Sulfate 4 mg PRN Q2HR PRN IV PAIN Last administered on 04/14/17 13:11 ; Start 04/14/17 at 12:45 Ondansetron HCl (Zofran) 4 mg PRN Q6HRS PRN IV NAUSEA/VOMITING; Start 04/14/17 at 13:00; Stop 04/14/17 at 21:00; Status DC Fentanyl Citrate (Fentanyl 2ml Vial) 25 mcg PRN Q5MIN PRN IV MILD PAIN; Start 04/14/17 at 13:00; Stop 04/14/17 at 21:00; Status DC Fentanyl Citrate (Fentanyl 2ml Vial) 50 mcg PRN Q5MIN PRN IV MODERATE PAIN; Start 04/14/17 at 13:00; Stop 04/14/17 at 21:00; Status DC Morphine Sulfate 1 mg PRN Q10MIN PRN IV SEVERE PAIN; Start 04/14/17 at 13:00; Stop 04/14/17 at 21:00; Status DC Ringer's Solution 1,000 ml @ 30 mls/hr Q24H IV Last administered on 04/14/17t 13:31; Start 04/14/17 at 13:00; Stop 04/14/17 at 21:00; Status DC Lidocaine HCl 2 ml PRN 1X PRN ID PRIOR TO IV START; Start 04/14/17 at 13:00; Stop 04/14/17 at 21:00; Status DC Hydromorphone HCl (Dilaudid) 0.5 mg PRN Q10MIN PRN IV SEV PAIN, Second choice; Start 04/14/17 at 13:00; Stop 04/14/17 at 21:00; Status DC Prochlorperazine Edisylate (Compazine) 5 mg PACU PRN PRN IV NAUSEA, MRX1; Start 04/14/17 at 13:00; Stop 04/14/17 at 21:00; Status DC Propofol 20 ml @ As Directed STK-MED ONCE IV ; Start 04/14/17 at 13:21; Stop 04/14 at 13:22; Status DC Lidocaine HCl (Lidocaine Pf 2% Vial) 5 ml STK-MED ONCE .ROUTE ; Start 04/14/17 at 13:21; Stop 04/14/17 at 13:22; Status DC Famotidine (Pepcid) 20 mg STK-MED ONCE .ROUTE ; Start 04/14/17 at 13:21; Stop 04/14/17 at 13:22; Status DC Ondansetron HCl (Zofran) 4 mg STK-MED ONCE .ROUTE ; Start 04/14/17 at 13:22; Stop 04/14/17 at 13:23; Status DC Dexamethasone Sodium Phosphate (Decadron) 20 mg STK-MED ONCE .ROUTE ; Start 04/14 at 13:22; Stop 04/14/17 at 13:23; Status DC Succinylcholine Chloride (Anectine) 200 mg STK-MED ONCE .ROUTE ; Start 04/14/17 at 13:22; Stop 04/14/17 at 13:23; Status DC Sevoflurane (Ultane) 30 ml STK-MED ONCE IH ; Start 04/14/17 at 13:31; Stop at 13:32; Status DC Fentanyl Citrate (Fentanyl 2ml Vial) 100 mcg STK-MED ONCE .ROUTE ; Start at 13:56; Stop 04/14/17 at 13:57; Status DC Sevoflurane (Ultane) 30 ml STK-MED ONCE IH ; Start 04/14/17 at 14:38; Stop at 14:39; Status DC Simethicone (Gas-X) 80 mg PRN AFTMEALHC PRN PO GAS / BLOATING Last administered on 04/15/17 14:27; Start 04/15/17 at 11:15 Nafcillin Sodium 2 gm/Sodium Chloride 100 ml @ 200 mls/hr Q4HRS IV Last administered on 04/16/17 08:26; Start 04/15/17 at 14:00 Chlorpromazine HCl (Thorazine) 25 mg PRN Q6HRS PRN PO HICCUPS; Start 04/15/17 at 14:15 Active Scripts Active No Active Prescriptions or Reported Medications Vitals/I & O Vital Sign - Last 24 Hours 04/15/17 04/15/17 04/15/17 04/16/17 15:00 19:35 23:32 07:00 Temp 98.3 98.2 97.7 98.0 98.3 98.2 97.7 98.0 Pulse 91 95 94 79 Resp 20 18 18 16 B/P (MAP) 145/74 (97) 132/78 (96) 143/80 (101) 117/82 (94) Pulse Ox 94 96 97 97 O2 Delivery Room Air Room Air Room Air Room Air 04/16/17 04/16/17 07:40 11:00 Temp 98.1 98.1 Pulse 78 Resp 16 B/P (MAP) 140/87 (104) Pulse Ox 97 O2 Delivery Room Air Room Air Intake and Output 04/15/17 04/15/17 04/16/17 15:00 23:00 07:00 Intake Total 400 ml Balance 400 ml LEONIE ANNA MD Apr 16, 2017 11:18
[2017-04-16 15:00] VITALS: BP 121/78
[2017-04-16 19:26] LABS: BASO # 0.1 x10^3/uL (0.0-0.2); BASO % 1 % (0-3); EOS % 1 % (0-3); HEMATOCRIT 43.3 % (39.0-53.0); HEMOGLOBIN 14.8 g/dL (13.0-17.5); LYMPH # 3.5 x10^3/uL (1.0-4.8); LYMPH % 29 % (24-48); MEAN CORPUSCULAR HEMOGLOBIN 30 pg (25-35); MEAN CORPUSCULAR HGB CONC 34 g/dL (31-37); MEAN CORPUSCULAR VOLUME 89 fL (79-100); MONO % 8 % (0-9); NEUT % 62 % (31-73); PLATELET COUNT 673 x10^3/uL (140-400); RED BLOOD COUNT 4.89 x10^6/uL (4.30-5.70); RED CELL DISTRIBUTION WIDTH 15.1 % (11.5-14.5); WHITE BLOOD COUNT 12.3 x10^3/uL (4.0-11.0)
[2017-04-16 19:30] VITALS: BP 115/78
[2017-04-16 19:39] LABS: CALCIUM 9.2 mg/dL (8.5-10.1); CREATININE 1.2 mg/dL (0.7-1.3); GFR 67.4; POTASSIUM 3.9 mmol/L (3.5-5.1)
[2017-04-16 23:30] VITALS: BP 152/83
[2017-04-17] MEDS: NAFCILLIN 2 GM in IV NORMAL SALINE 100ML 100 ML IV SCH ×5 (00:14→16:00)
[2017-04-17 03:30] VITALS: BP 122/87
[2017-04-17 07:00] VITALS: BP 137/91
--- NOTE | 2017-04-17 08:58 | PDOC ---
SURGICAL PROGRESS NOTE Subjective no complaints waiting to go home Vital Signs Vital Signs Date Time Temp Pulse Resp B/P (MAP) Pulse Ox O2 Delivery O2 Flow Rate FiO2 04/17/17 07:00 98.5 93 20 137/91 (106) 98 Room Air 98.5 I&O Intake and Output 04/17/17 07:00 Intake Total 1030 ml Balance 1030 ml Intake Oral 1030 ml # Voids 3 General: Alert, Oriented X3, Cooperative, No acute distress Skin: Other (wound vac in place, some bloody drainage in canister ) Labs Laboratory Tests Test 04/16/17 19:15 White Blood Count 12.3 x10^3/uL (4.0-11.0) Red Blood Count 4.89 x10^6/uL (4.30-5.70) Hemoglobin 14.8 g/dL (13.0-17.5) Hematocrit 43.3 % (39.0-53.0) Mean Corpuscular Volume 89 fL (79-100) Mean Corpuscular Hemoglobin 30 pg (25-35) Mean Corpuscular Hemoglobin Concent 34 g/dL (31-37) Red Cell Distribution Width 15.1 % (11.5-14.5) Platelet Count 673 x10^3/uL (140-400) Neutrophils (%) (Auto) 62 % (31-73) Lymphocytes (%) (Auto) 29 % (24-48) Monocytes (%) (Auto) 8 % (0-9) Eosinophils (%) (Auto) 1 % (0-3) Basophils (%) (Auto) 1 % (0-3) Neutrophils # (Auto) 7.6 x10^3uL (1.8-7.7) Lymphocytes # (Auto) 3.5 x10^3/uL (1.0-4.8) Monocytes # (Auto) 0.9 x10^3/uL (0.0-1.1) Eosinophils # (Auto) 0.2 x10^3/uL (0.0-0.7) Basophils # (Auto) 0.1 x10^3/uL (0.0-0.2) Sodium Level 139 mmol/L (136-145) Potassium Level 3.9 mmol/L (3.5-5.1) Chloride Level 102 mmol/L (98-107) Carbon Dioxide Level 29 mmol/L (21-32) Anion Gap 8 (6-14) Blood Urea Nitrogen 15 mg/dL (8-26) Creatinine 1.2 mg/dL (0.7-1.3) Estimated GFR (Cockcroft-Gault) 67.4 Glucose Level 156 mg/dL (70-99) Calcium Level 9.2 mg/dL (8.5-10.1) Laboratory Tests Test 04/16/17 19:15 White Blood Count 12.3 x10^3/uL (4.0-11.0) Red Blood Count 4.89 x10^6/uL (4.30-5.70) Hemoglobin 14.8 g/dL (13.0-17.5) Hematocrit 43.3 % (39.0-53.0) Mean Corpuscular Volume 89 fL (79-100) Mean Corpuscular Hemoglobin 30 pg (25-35) Mean Corpuscular Hemoglobin Concent 34 g/dL (31-37) Red Cell Distribution Width 15.1 % (11.5-14.5) Platelet Count 673 x10^3/uL (140-400) Neutrophils (%) (Auto) 62 % (31-73) Lymphocytes (%) (Auto) 29 % (24-48) Monocytes (%) (Auto) 8 % (0-9) Eosinophils (%) (Auto) 1 % (0-3) Basophils (%) (Auto) 1 % (0-3) Neutrophils # (Auto) 7.6 x10^3uL (1.8-7.7) Lymphocytes # (Auto) 3.5 x10^3/uL (1.0-4.8) Monocytes # (Auto) 0.9 x10^3/uL (0.0-1.1) Eosinophils # (Auto) 0.2 x10^3/uL (0.0-0.7) Basophils # (Auto) 0.1 x10^3/uL (0.0-0.2) Sodium Level 139 mmol/L (136-145) Potassium Level 3.9 mmol/L (3.5-5.1) Chloride Level 102 mmol/L (98-107) Carbon Dioxide Level 29 mmol/L (21-32) Anion Gap 8 (6-14) Blood Urea Nitrogen 15 mg/dL (8-26) Creatinine 1.2 mg/dL (0.7-1.3) Estimated GFR (Cockcroft-Gault) 67.4 Glucose Level 156 mg/dL (70-99) Calcium Level 9.2 mg/dL (8.5-10.1) Problem List s/p I&D abscess wound vac in place, waiting for home vac Problems: KATHY CUI APRN Apr 17, 2017 08:58
--- NOTE | 2017-04-17 08:59 | PDOC ---
Provider Note Provider Note no bleeding from wound. wound vac in place. hopefully, home today with home vac. f/u with wound clinic for vac changes. f/ u with me in 1-2 weeks. NO LYLE MD Apr 17, 2017 08:59
[2017-04-17 11:00] VITALS: BP 136/87
[2017-04-17] MEDS: MORPHINE SULFATE 4 MG/ML DISP.SYRIN. IV PRN (14:57)
[2017-04-17] MEDS ORDERED: HYDR-2666 PO (16:19)
[2017-04-17] MEDS ORDERED: AMOX1TAB61 PO (16:19)
--- NOTE | 2017-04-18 23:07 | DS ---
DATE OF DISCHARGE: 04/17/2017 CHIEF COMPLAINT: Buttock abscess. HOSPITAL COURSE: The patient is a 41-year-old gentleman who had presented to the Emergency Room with a 1-week history of left buttock pain and redness. He himself had tried to naseem it, but because of persistent pain, decided to come to the Emergency Room. He had no documented fevers, but elevated WBC. He was seen by Dr. Angela from Surgery who performed an incision and drainage of a complex intramuscular left gluteal abscess on 04/13/2017. Following day, the wound was once again surgically explored and ligation and cautery was required to control bleeding. Wound was subsequently addressed with wound VAC, which the patient had in place at the time of discharge. He recovered otherwise uneventfully, his blood counts normalized with appropriate antibiotics. He was deemed stable for discharge on 04/17/2017 with followup at the wound clinic for VAC changes. DISCHARE DATE: 04/17/2017. DISCHARGE DIAGNOSES: Left buttock abscess, status post incision and drainage as well as surgical exploration on 04/13/2017 and 04/14/2017 respectively. DISCHARGE DISPOSITION: To home. DISCHARGE CONDITION: Improved. DISCHARGE MEDICATIONS: Please refer to MAR. DISCHARGE INSTRUCTIONS: The patient will follow up with wound clinic tomorrow and make an appointment to see Dr. Angela in followup in 1-2 weeks. TERENCE ACOSTA MD DR: UR/nts JOB#: [id number] / [id number]
== END 2017-04-17 17:25 | disposition home or self-care (01) | DRG 854 ==
LOC: ER 21:25 → 4 NORTH 22:21
PROVIDERS: ADMIT Internal Medicine; ATTEND Internal Medicine
PROC: 0J990ZZ Drainage of Buttock Subcutaneous Tissue and Fascia, Open Approach (ICD-10-PCS; 2017-04-13)
PROC: 0W3 Anatomical Regions, General, Control (ICD-10-PCS; principal; 2017-04-14 14:00)
DX: A41.9 Sepsis, unspecified organism (principal); L03.317 Cellulitis of buttock; L02.31 Cutaneous abscess of buttock; F41.9 Anxiety disorder, unspecified; D75.89 Other specified diseases of blood and blood-forming organs
CPT/HCPCS: 36415; 76857; 80048; 80053; 85007; 85027; 85651; 87040; 87071; 87075; 87205; 90471; 90715; 96365; 96375; J0330; J1100; J2060; J2270; J2405; J2704; J3010; J3490; J7030; J7120; S0028; 99285-25

== ENCOUNTER → 2017-04-20 | Outpatient (CLI) | payer BC ==
[2017-04-17 11:00] VITALS: BP 136/87
[~2017-04-20] MED LIST: AMOX1TAB61 PO; HYDR-2758 PO
[2017-04-20 09:53] LABS: BASO % 0 % (0-3); EOS % 3 % (0-3); HEMATOCRIT 43.1 % (39.0-53.0); LYMPH # 3.7 x10^3/uL (1.0-4.8); LYMPH % 35 % (24-48); MEAN CORPUSCULAR HEMOGLOBIN 31 pg (25-35); MEAN CORPUSCULAR HGB CONC 35 g/dL (31-37); MEAN CORPUSCULAR VOLUME 88 fL (79-100); MONO % 7 % (0-9); NEUT % 55 % (31-73); PLATELET COUNT 643 x10^3/uL (140-400); RED CELL DISTRIBUTION WIDTH 15.8 % (11.5-14.5); WHITE BLOOD COUNT 10.6 x10^3/uL (4.0-11.0)
[2017-04-20 09:56] LABS: PROTHROMBIN TIME PATIENT 12.9 SEC (11.7-14.0)
== END | disposition home or self-care (01) ==
LOC: PMGWOUND 07:18
PROVIDERS: ATTEND Emergency Medicine Undersea and Hyperbaric Medicine
DX: T81.31XA Disruption of external operation (surgical) wound, not elsewhere classified, initial encounter (principal); L02.31 Cutaneous abscess of buttock; D68.8 Other specified coagulation defects; Z72.89 Other problems related to lifestyle; Y83.8 Other surgical procedures as the cause of abnormal reaction of the patient, or of later complication, without mention of misadventure at the time of the procedure
CPT/HCPCS: 36415; 85027; 85610; 85730; 99204

== ENCOUNTER → 2017-04-21 | Outpatient (CLI) | payer BC ==
[2017-04-17 11:00] VITALS: BP 136/87
== END | disposition home or self-care (01) ==
LOC: PMGWOUND 10:49
PROVIDERS: ATTEND Preventive Medicine Undersea and Hyperbaric Medicine
DX: T81.31XA Disruption of external operation (surgical) wound, not elsewhere classified, initial encounter (principal); L02.31 Cutaneous abscess of buttock; Z72.89 Other problems related to lifestyle; Y83.8 Other surgical procedures as the cause of abnormal reaction of the patient, or of later complication, without mention of misadventure at the time of the procedure
CPT/HCPCS: 99212

== ENCOUNTER → 2017-04-24 | Outpatient (CLI) | payer BC ==
[2017-04-17 11:00] VITALS: BP 136/87
== END | disposition home or self-care (01) ==
LOC: PMGWOUND 14:18
PROVIDERS: ATTEND Emergency Medicine Undersea and Hyperbaric Medicine
DX: T81.31XD Disruption of external operation (surgical) wound, not elsewhere classified, subsequent encounter (principal); F41.9 Anxiety disorder, unspecified; Z72.89 Other problems related to lifestyle; Y83.8 Other surgical procedures as the cause of abnormal reaction of the patient, or of later complication, without mention of misadventure at the time of the procedure
CPT/HCPCS: 99214

== ENCOUNTER → 2017-04-27 | Outpatient (CLI) | payer BC ==
[2017-04-17 11:00] VITALS: BP 136/87
== END | disposition home or self-care (01) ==
LOC: PMGWOUND 11:07
PROVIDERS: ATTEND Emergency Medicine Undersea and Hyperbaric Medicine
DX: T81.31XD Disruption of external operation (surgical) wound, not elsewhere classified, subsequent encounter (principal); L02.31 Cutaneous abscess of buttock; F41.9 Anxiety disorder, unspecified; Z72.89 Other problems related to lifestyle; Y83.8 Other surgical procedures as the cause of abnormal reaction of the patient, or of later complication, without mention of misadventure at the time of the procedure
CPT/HCPCS: 99214